=== PATIENT | female | born 1965 | race American Indian/Alaskan Native ===

== ENCOUNTER 2020-05-22 09:39 | Emergency (ER) | payer BC, MEDICAID ==
[2020-05-22 09:50] VITALS: BP 114/68; PULSE 84
--- NOTE | 2020-05-22 10:08 | EDM.PDOC ---
ED HPI GENERAL MEDICAL PROBLEM - General Chief Complaint: Upper Extremity Injury/Pain Stated Complaint: FALL/L WRIST PAIN Time Seen by Provider: 05/22/20 09:54 Source of Information: Reports: Patient History Limitations: Reports: No Limitations - History of Present Illness INITIAL COMMENTS - FREE TEXT/NARRATIVE: The patient presents with left wrist pain. She was wrapping presents and she had a mess and she tripped and fell backward and landed on her left wrist. She has some pain to her left wrist with some edema. She did not hit her head or hurt her neck. She has no other injuries. She is right handed. Onset: Sudden Duration: Day(s): (last night) Location: Reports: Upper Extremity, Left (wrist) Quality: Reports: Sharp Severity: Moderate Improves with: Reports: Immobilization Worsens with: Reports: Movement Context: Reports: Trauma (fell) Associated Symptoms: Reports: No Other Symptoms Left Wrist Pain Score (Numeric/FACES): 10 - Related Data Allergies Allergy/AdvReac Type Severity Reaction Status Date / Time No Known Allergies Allergy Verified 05/22/20 09:50 Home Meds: Home Meds Doxycycline [Vibramycin] 100 mg PO Q12HR #24 cap 09/17/15 [Rx] traMADol [Ultram] 50 mg PO QID 09/17/15 [History] traMADol [Ultram] 100 mg PO Q6H #20 tablet 09/17/15 [Rx] Past Medical History Other HEENT History: Parotitis Cardiovascular History: Reports: High Cholesterol, Hypertension Genitourinary History: Reports: Other (See Below) Other Genitourinary History: bladder sling placement 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 (See Below) Other FOOD PORTER History: hysterectomy Musculoskeletal History: Reports: Arthritis Psychiatric History: Reports: Anxiety, Depression Oncologic (Cancer) History: Reports: Leukemia - Past Surgical History HEENT Surgical History: Reports: Myringotomy w Tube(s), Oral Surgery, Other (See Below) Other HEENT Surgeries/Procedures: wisdom teeth extraction Social & Family History - Family History Family Medical History: No Pertinent Family History - Tobacco Use Tobacco Use Status *Q: Current Every Day Tobacco User Years of Tobacco use: 35 Packs/Tins Daily: 0.5 - Caffeine Use Caffeine Use: Reports: None - Recreational Drug Use Recreational Drug Use: No - Living Situation & Occupation Occupation: Employed Review of Systems - Review of Systems Review Of Systems: See Below Constitutional: Reports: No Symptoms Eyes: Reports: No Symptoms Ears: Reports: No Symptoms Nose: Reports: No Symptoms Mouth/Throat: Reports: No Symptoms Respiratory: Reports: No Symptoms Cardiovascular: Reports: No Symptoms GI/Abdominal: Reports: No Symptoms Musculoskeletal: Reports: Other (Left wrist pain and swelling) ED EXAM, GENERAL - Physical Exam Exam: See Below Exam Limited By: No Limitations General Appearance: Alert, No Apparent Distress Ears: Normal External Exam Nose: Normal Inspection Head: Atraumatic, Normocephalic Neck: Normal Inspection Respiratory/Chest: No Respiratory Distress Extremities: Other (Pain upon palpation to the left wrist with edema. Good sensation and capillary refill distally.) Course - Vital Signs Last Recorded V/S: Last Vital Signs Temp 97.7 F 05/22/20 09:47 Pulse 84 05/22/20 09:47 Resp 16 05/22/20 09:47 BP 114/68 05/22/20 09:47 Pulse Ox 97 05/22/20 09:47 - Orders/Labs/Meds Orders: Active Orders 24 hr Category Date Time Status Wrist Comp Min 3V Lt [CR] Stat Exams 05/22/20 09:56 Taken Durable Medical Equipment for Discharge [DME for Oth 05/22/20 10:23 Ordered Discharge] [COMM] Stat - Re-Assessments/Exams Free Text/Narrative Re-Assessment/Exam: 05/22/20 10:08 I ordered an x-ray of her left wrist. 05/22/20 10:23 There is no wrist fracture. I will get her a wrist splint and something for pain. Departure - Departure Time of Disposition: 10:30 Disposition: Home, Self-Care 01 Condition: Good Clinical Impression: Fall Qualifiers: Encounter type: initial encounter Qualified Code(s): W19.XXXA - Unspecified fall, initial encounter Left wrist sprain Qualifiers: Encounter type: initial encounter Qualified Code(s): S63.502A - Unspecified sprain of left wrist, initial encounter - Discharge Information *PRESCRIPTION DRUG MONITORING PROGRAM REVIEWED*: Not Applicable *COPY OF PRESCRIPTION DRUG MONITORING REPORT IN PATIENT AMOS: Not Applicable Referrals: Poonam Reyna NP [Primary Care Provider] - 1 Week Forms: ED Department Discharge Additional Instructions: Ice your wrist for 15 minutes 3 times per day for 2 days. Take tylenol or motrin for pain. If that does not help, try the hydrocodone. Wear the splint for comfort. If you are not better within a week, follow up with your doctor for a repeat x-ray. Sepsis Event Note (ED) - Evaluation Sepsis Screening Result: No Definite Risk - Focused Exam Vital Signs: Vital Signs Temp Pulse Resp BP Pulse Ox 05/22/20 09:47 97.7 F 84 16 114/68 97 - My Orders Last 24 Hours: My Active Orders 05/22/20 09:56 Wrist Comp Min 3V Lt [CR] Stat 05/22/20 10:23 Durable Medical Equipment for Discharge [DME for Discharge] [COMM] Stat - Assessment/Plan Last 24 Hours: My Active Orders 05/22/20 09:56 Wrist Comp Min 3V Lt [CR] Stat 05/22/20 10:23 Durable Medical Equipment for Discharge [DME for Discharge] [COMM] Stat
--- NOTE | 2020-05-23 09:58 | CR ---
PROCEDURE INFORMATION: Exam: XR Left Wrist Exam date and time: 05/22/2020 9:43 AM Age: 54 years old Clinical indication: Injury or trauma; Swelling (edema); Wrist; Left; Injury details: Fall, wetn to catch herself TECHNIQUE: Imaging protocol: XR Left wrist. Views: 3 or more views. COMPARISON: No relevant prior studies available. FINDINGS: Bones/joints: No acute fracture or dislocation is identified. The radiocarpal compartment is mildly narrowed. Very mild osteophyte formation is present about the 1st carpometacarpal joint. There is no osseous erosion or cortical destruction. Soft tissues: There is mild generalized soft tissue swelling. IMPRESSION: 1. Mild soft tissue swelling without acute fracture or dislocation identified. May consider follow-up in 7 to 10 days or correlation with MRI if symptoms persist. 2. Degenerative changes as described. Thank you for allowing us to participate in the care of your patient. Dictated and Authenticated by: Malachi Stephenson MD 05/22/2020 1:49 PM Central Time ([place] & [place]) [place]
== END 2020-05-22 10:39 | disposition home or self-care (01) ==
LOC: JD.ED 09:39
DX: S63.502A Unspecified sprain of left wrist, initial encounter (principal); I10 Essential (primary) hypertension; F17.210 Nicotine dependence, cigarettes, uncomplicated; W01.0XXA Fall on same level from slipping, tripping and stumbling without subsequent striking against object, initial encounter
CPT/HCPCS: 73110-26-LT; 73110-LT; 99283-25

== ENCOUNTER 2020-05-27 07:36 | Inpatient (IN) | payer BC, MEDICAID ==
[2020-05-27] MEDS ORDERED: HYDROmorphone 0.5 MG/0.5 ML Syringe IVPUSH ONE ×2 (08:25→12:24)
[2020-05-27] MEDS ORDERED: Sodium Chloride 0.9% 10 ML Syringe FLUSH PRN ×2 (08:25→13:01)
[2020-05-27] MEDS: Sodium Chloride 0.9% 1,000 ML IV SCH ×3 (08:55→19:30)
[2020-05-27] MEDS ORDERED: Clindamycin Phosphate in D5W 900 MG in Premix Bag 1 BAG IV ONE ×2 (09:10)
[2020-05-27] MEDS ORDERED: Sodium Chloride 0.9% 10 ML Syringe FLUSH ONE (10:19)
[2020-05-27] MEDS ORDERED: Iopamidol 612 MG/ML 100 ML Bottle IVPUSH ONE (10:19)
[2020-05-27] MEDS ORDERED: cefTRIAXone 2 GM in Sodium Chloride 0.9% 100 ML IV ONE (11:06)
--- NOTE | 2020-05-27 11:17 | EDM.PDOC ---
ED HPI GENERAL MEDICAL PROBLEM - General Chief Complaint: ENT Problem Stated Complaint: FACIAL SWELLING Time Seen by Provider: 05/27/20 08:10 Source of Information: Reports: Patient, RN Notes Reviewed - History of Present Illness INITIAL COMMENTS - FREE TEXT/NARRATIVE: 54 yr old female comes in with R facial pain and swelling. Started about 3 days ago. Low grade fever, chills. Hx of something similar about 8 to 10 yrs ago. No recent cough, chest pain or difficulty breathing. No sore throat. She is not diabetic. Right Face/Facial Pain Score (Numeric/FACES): 1 - Related Data Allergies Allergy/AdvReac Type Severity Reaction Status Date / Time No Known Allergies Allergy Verified 05/27/20 08:05 Home Meds: Home Meds Amoxicillin/Potassium Clav [Augmentin 875-125 Tablet] 125 - 875 mg PO BID 05/27/20 [History] Citalopram Hydrobromide [Celexa] 40 mg PO DAILY 05/27/20 [History] Zolpidem [Ambien] 10 mg PO BEDTIME PRN 05/27/20 [History] oxyCODONE HCl/Acetaminophen [Oxycodone-Acetaminophen 5-325] 5 - 325 mg PO Q6H PRN 05/27/20 [History] traMADol [Ultram] 100 mg PO Q6H PRN 05/27/20 [History] Past Medical History Other HEENT History: Parotitis Cardiovascular History: Reports: High Cholesterol, Hypertension Genitourinary History: Reports: Other (See Below) Other Genitourinary History: bladder sling placement [employer] 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 Psychiatric History: Reports: Anxiety, Depression Hematologic History: Reports: Anemia Oncologic (Cancer) History: Reports: Leukemia, Other (See Below) Other Oncologic History: states was told had "bone disease." - Infectious Disease History Infectious Disease History: Reports: Chicken Pox - Past Surgical History HEENT Surgical History: Reports: Myringotomy w Tube(s), Oral Surgery, Other (See Below) Other HEENT Surgeries/Procedures: wisdom teeth extraction GI Surgical History: Reports: Cholecystectomy Female Surgical History: Reports: Hysterectomy Social & Family History - Family History Family Medical History: No Pertinent Family History - Tobacco Use Tobacco Use Status *Q: Current Every Day Tobacco User Years of Tobacco use: 30 Packs/Tins Daily: 0.5 - Caffeine Use Caffeine Use: Reports: Coffee - Recreational Drug Use Recreational Drug Use: No - Living Situation & Occupation Occupation: Employed ED ROS ENT - Review of Systems Review Of Systems: See Below Constitutional: Reports: Fever, Chills HEENT: Reports: Other (R facial pain and swelling). Denies: Throat Pain Respiratory: Denies: Cough Cardiovascular: Denies: Chest Pain GI/Abdominal: Denies: Abdominal Pain, Nausea, Vomiting Musculoskeletal: Reports: Neck Pain (and swelling R upper neck) Skin: Reports: Erythema (mild base of R ear and ant. to R ear) Neurological: Denies: Headache, Numbness, Tingling, Trouble Speaking, Difficulty Walking, Weakness ED EXAM, ENT - Physical Exam Exam: See Below General Appearance: Alert, Moderate Distress Eye Exam: Bilateral Eye: PERRL Mouth/Throat: Normal Inspection Head: Facial Swelling (moderate R facial swelling and tenderness, R maxillary to R base of ear) Neck: Other (mooderate diffuse swelling and tenderness R upper neck) Respiratory/Chest: No Respiratory Distress, Lungs Clear, Normal Breath Sounds. No: Rhonchi, Wheezing Cardiovascular: Regular Rate, Rhythm Extremities: Normal Inspection, Normal Range of Motion Neurological: Alert, Oriented, No Motor/Sensory Deficits Skin: Warm, Dry Course - Vital Signs Last Recorded V/S: Last Vital Signs Temp 100.0 F 05/27/20 08:00 Pulse 72 05/27/20 08:00 Resp 16 05/27/20 08:00 BP 134/68 05/27/20 08:00 Pulse Ox 93 L 05/27/20 08:00 - Orders/Labs/Meds Orders: Active Orders 24 hr Category Date Time Status Peripheral IV Care [RC] . DIRECTED Care 05/27/20 08:26 Active Max Facial Sinus w Cont [CT] Stat Exams 05/27/20 08:27 Taken CULTURE BLOOD [BC] Stat Lab 05/27/20 08:45 Received Sodium Chloride 0.9% [Normal Saline] 1,000 ml Med 05/27/20 08:30 Active IV ASDIRECTED Sodium Chloride 0.9% [Saline Flush] Med 05/27/20 08:25 Active 10 ml FLUSH ASDIRECTED PRN Peripheral IV Insertion Adult [OM.PC] Stat Oth 05/27/20 08:25 Ordered Medication Orders Sodium Chloride (Normal Saline) 1,000 mls @ 150 mls/hr IV ASDIRECTED LOUISE Last Admin: 05/27/20 08:55 Dose: 150 mls/hr Documented by: PINO Sodium Chloride (Saline Flush) 10 ml FLUSH ASDIRECTED PRN PRN Reason: Keep Vein Open Last Admin: 05/27/20 08:55 Dose: 10 ml Documented by: PINO Labs: Laboratory Tests 05/27/20 05/27/20 05/27/20 Range/Units 08:45 08:45 08:45 WBC 17.87 H (3.98-10.04) K/mm3 RBC 4.16 (3.98-5.22) M/mm3 Hgb 12.4 (11.2-15.7) gm/dl Hct 36.7 (34.1-44.9) % MCV 88.2 (79.4-94.8) fl MCH 29.8 (25.6-32.2) pg MCHC 33.8 (32.2-35.5) g/dl RDW Std Deviation 43.9 (36.4-46.3) fL Plt Count 353 (182-369) K/mm3 MPV 9.7 (9.4-12.3) fl Neut % (Auto) 81.8 H (34.0-71.1) % Lymph % (Auto) 10.8 L (19.3-51.7) % Smyth % (Auto) 6.4 (4.7-12.5) % Eos % (Auto) 0.9 (0.7-5.8) Baso % (Auto) 0.1 (0.1-1.2) % Neut # (Auto) 14.61 H (1.56-6.13) K/mm3 Lymph # (Auto) 1.93 (1.18-3.74) K/mm3 Smyth # (Auto) 1.15 H (0.24-0.36) K/mm3 Eos # (Auto) 0.16 (0.04-0.36) K/mm3 Baso # (Auto) 0.02 (0.01-0.08) K/mm3 Sodium 137 (136-145) mEq/L Potassium 3.7 (3.5-5.1) mEq/L Chloride 101 (98-107) mEq/L Carbon Dioxide 26 (21-32) mEq/L Anion Gap 13.7 (5-15) BUN 9 (7-18) mg/dL Creatinine 0.8 (0.55-1.02) mg/dL Est Cr Clr Drug Dosing 84.01 mL/min Estimated GFR (MDRD) > 60 (>60) mL/min BUN/Creatinine Ratio 11.3 L (14-18) Glucose 112 H (74-106) mg/dL Calcium 9.1 (8.5-10.1) mg/dL Total Bilirubin 0.4 (0.2-1.0) mg/dL AST 11 L (15-37) U/L ALT 23 (14-59) U/L Alkaline Phosphatase 74 (46-116) U/L C-Reactive Protein 15.6 H* (<1.0) mg/dL Total Protein 7.8 (6.4-8.2) g/dl Albumin 3.3 L (3.4-5.0) g/dl Globulin 4.5 gm/dL Albumin/Globulin Ratio 0.7 L (1-2) SARS-CoV-2 RNA (GEMINI) (NEGATIVE) 05/27/20 Range/Units 09:45 WBC (3.98-10.04) K/mm3 RBC (3.98-5.22) M/mm3 Hgb (11.2-15.7) gm/dl Hct (34.1-44.9) % MCV (79.4-94.8) fl MCH (25.6-32.2) pg MCHC (32.2-35.5) g/dl RDW Std Deviation (36.4-46.3) fL Plt Count (182-369) K/mm3 MPV (9.4-12.3) fl Neut % (Auto) (34.0-71.1) % Lymph % (Auto) (19.3-51.7) % Smyth % (Auto) (4.7-12.5) % Eos % (Auto) (0.7-5.8) Baso % (Auto) (0.1-1.2) % Neut # (Auto) (1.56-6.13) K/mm3 Lymph # (Auto) (1.18-3.74) K/mm3 Smyth # (Auto) (0.24-0.36) K/mm3 Eos # (Auto) (0.04-0.36) K/mm3 Baso # (Auto) (0.01-0.08) K/mm3 Sodium (136-145) mEq/L Potassium (3.5-5.1) mEq/L Chloride (98-107) mEq/L Carbon Dioxide (21-32) mEq/L Anion Gap (5-15) BUN (7-18) mg/dL Creatinine (0.55-1.02) mg/dL Est Cr Clr Drug Dosing mL/min Estimated GFR (MDRD) (>60) mL/min BUN/Creatinine Ratio (14-18) Glucose (74-106) mg/dL Calcium (8.5-10.1) mg/dL Total Bilirubin (0.2-1.0) mg/dL AST (15-37) U/L ALT (14-59) U/L Alkaline Phosphatase (46-116) U/L C-Reactive Protein (<1.0) mg/dL Total Protein (6.4-8.2) g/dl Albumin (3.4-5.0) g/dl Globulin gm/dL Albumin/Globulin Ratio (1-2) SARS-CoV-2 RNA (GEMINI) Negative (NEGATIVE) Meds: Medications Generic Name Dose Route Start Last Admin Trade Name Freq PRN Reason Stop Dose Admin Sodium Chloride 1,000 mls @ 150 mls/hr 05/27/20 08:30 05/27/20 08:55 Normal Saline IV 150 mls/hr ASDIRECTED LOUISE Administration Sodium Chloride 10 ml 05/27/20 08:25 05/27/20 08:55 Saline Flush FLUSH 10 ml ASDIRECTED PRN Administration Keep Vein Open Discontinued Medications Generic Name Dose Route Start Last Admin Trade Name Freq PRN Reason Stop Dose Admin Hydromorphone HCl 0.5 mg 05/27/20 08:25 05/27/20 08:50 Dilaudid IVPUSH 05/27/20 08:26 0.5 mg ONETIME ONE Administration Hydromorphone HCl 0.5 mg 05/27/20 12:24 Dilaudid IVPUSH 05/27/20 12:25 ONETIME ONE Clindamycin Phosphate 900 mg/ 50 mls @ 100 mls/hr 05/27/20 09:10 05/27/20 09:42 Premix IV 05/27/20 09:39 100 mls/hr ONETIME ONE Administration Ceftriaxone Sodium 2 gm/ 100 mls @ 200 mls/hr 05/27/20 11:06 05/27/20 12:20 Sodium Chloride IV 05/27/20 11:35 200 mls/hr ONETIME ONE Administration Iopamidol 100 ml 05/27/20 10:19 05/27/20 10:24 Isovue-300 (61%) IVPUSH 05/27/20 10:20 100 ml ONETIME ONE Administration Sodium Chloride 10 ml 05/27/20 10:19 05/27/20 10:24 Saline Flush FLUSH 05/27/20 10:20 10 ml ONETIME ONE Administration - Re-Assessments/Exams Free Text/Narrative Re-Assessment/Exam: 05/27/20 11:17. WBC 17,800. 82 % seg, 11 % L, CRP 15.6. CT of R face and R neck shows wide spread edema and inflamatory change R face and neck with large mass, probable parotid measuring 3 by 5 cm, no abcess, see Radiology report for details. CT also shows lymph nodes R neck. Have discussed with CLIVE Bowens, [facility] who states treatment for this is Hospitalization, IV abx, agrees with IV Cipro 900 TID, wants rocephin added. Have ordered initial dose of Rocephin 2 grams IV as well. We will have one more bed available this afternoon. Her Covid is neg. Will arrange for admission. Departure - Departure Time of Disposition: 12:30 Disposition: Home, Self-Care 01 Condition: Serious Clinical Impression: Facial infection, Parotitis, acute - Discharge Information Referrals: Poonam Reyna NP [Primary Care Provider] - Forms: ED Department Discharge Sepsis Event Note (ED) - Evaluation Sepsis Screening Result: No Definite Risk - Focused Exam Vital Signs: Vital Signs Temp Pulse Resp BP Pulse Ox 05/27/20 08:00 100.0 F 72 16 134/68 93 L ED Communication - Discussed Case With (1) Discussed Case With (1): Admitting Provider (Dr Murray, decision to admit at about 12:30.) - My Orders Last 24 Hours: My Active Orders 05/27/20 08:25 Sodium Chloride 0.9% [Saline Flush] 10 ml FLUSH ASDIRECTED PRN Peripheral IV Insertion Adult [OM.PC] Stat 05/27/20 08:26 Peripheral IV Care [RC] . DIRECTED 05/27/20 08:27 Max Facial Sinus w Cont [CT] Stat 05/27/20 08:30 Sodium Chloride 0.9% [Normal Saline] 1,000 ml IV ASDIRECTED 05/27/20 08:45 CULTURE BLOOD [BC] Stat - Assessment/Plan Last 24 Hours: My Active Orders 05/27/20 08:25 Sodium Chloride 0.9% [Saline Flush] 10 ml FLUSH ASDIRECTED PRN Peripheral IV Insertion Adult [OM.PC] Stat 05/27/20 08:26 Peripheral IV Care [RC] . DIRECTED 05/27/20 08:27 Max Facial Sinus w Cont [CT] Stat 05/27/20 08:30 Sodium Chloride 0.9% [Normal Saline] 1,000 ml IV ASDIRECTED 05/27/20 08:45 CULTURE BLOOD [BC] Stat
[2020-05-27] MEDS ORDERED: Magnesium Hydroxide 400 MG/5 ML Susp 30 ML Cup PO PRN (13:01)
[2020-05-27] MEDS ORDERED: Ondansetron 4 MG/2 ML SDV IV PRN (13:01)
[2020-05-27] MEDS ORDERED: Clindamycin Phosphate in D5W 900 MG in Premix Bag 1 BAG IV SCH ×4 (13:15→16:30)
--- NOTE | 2020-05-27 13:46 | PCM.HP.2 ---
H&P History of Present Illness - General Date of Service: 05/27/20 Admit Problem/Dx: Admission Diagnosis/Problem Admission Diagnosis/Problem Infection of parotid gland Source of Information: Patient, Provider History Limitations: Reports: No Limitations - History of Present Illness Initial Comments - Free Text/Narative: 54 yr old female comes in with R facial pain and swelling. Started about 3 days ago. Low grade fever, chills. Hx of something similar about 8 to 10 yrs ago. No recent cough, chest pain or difficulty breathing. No sore throat. She is not diabetic. States she was seen by her primary care physician 2 days ago at the clinic and was prescribed steroids at that time. Swelling has progressively gotten worse and she has developed trismus. States she has only been drinking water and eating some yogurt. Onset of Symptoms: Reports: Gradual Right Face/Facial Pain Score (Numeric/FACES): 1 - Related Data Allergies/Adverse Reactions: Allergies Allergy/AdvReac Type Severity Reaction Status Date / Time No Known Allergies Allergy Verified 05/27/20 08:05 Home Medications: Home Meds Amoxicillin/Potassium Clav [Augmentin 875-125 Tablet] 125 - 875 mg PO BID 05/27/20 [History] Citalopram Hydrobromide [Celexa] 40 mg PO DAILY 05/27/20 [History] Zolpidem [Ambien] 10 mg PO BEDTIME PRN 05/27/20 [History] atorvaSTATin [Lipitor] 40 mg PO DAILY 05/27/20 [History] buPROPion [buPROPion XL] 150 mg PO DAILY 05/27/20 [History] hydroCHLOROthiazide [Hydrochlorothiazide] 12.5 mg PO DAILY 05/27/20 [History] lisinopriL [Lisinopril] 40 mg PO DAILY 05/27/20 [History] oxyCODONE HCl/Acetaminophen [Oxycodone-Acetaminophen 5-325] 5 - 325 mg PO Q6H PRN 05/27/20 [History] traMADol [Ultram] 100 mg PO Q6H PRN 05/27/20 [History] Past Medical History Other HEENT History: Parotitis Cardiovascular History: Reports: High Cholesterol, Hypertension Genitourinary History: Reports: Other (See Below) Other Genitourinary History: bladder sling placement 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 Psychiatric History: Reports: Anxiety, Depression Hematologic History: Reports: Anemia Oncologic (Cancer) History: Reports: Leukemia, Other (See Below) Other Oncologic History: states was told had "bone disease." - Infectious Disease History Infectious Disease History: Reports: Chicken Pox - Past Surgical History HEENT Surgical History: Reports: Myringotomy w Tube(s), Oral Surgery, Other (See Below) Other HEENT Surgeries/Procedures: wisdom teeth extraction GI Surgical History: Reports: Cholecystectomy Female Surgical History: Reports: Hysterectomy Social & Family History - Family History Family Medical History: No Pertinent Family History - Tobacco Use Tobacco Use Status *Q: Current Every Day Tobacco User Years of Tobacco use: 30 Packs/Tins Daily: 0.5 - Caffeine Use Caffeine Use: Reports: Coffee - Recreational Drug Use Recreational Drug Use: No - Living Situation & Occupation Occupation: Employed H&P Review of Systems - Review of Systems: Review Of Systems: See Below General: Reports: Fever, Chills, Malaise, Fatigue, Decreased Appetite HEENT: Reports: Other (Trismus) Pulmonary: Reports: No Symptoms Cardiovascular: Reports: No Symptoms Gastrointestinal: Reports: No Symptoms Genitourinary: Reports: No Symptoms Musculoskeletal: Reports: No Symptoms Skin: Reports: No Symptoms Psychiatric: Reports: No Symptoms Neurological: Reports: No Symptoms Hematologic/Lymphatic: Reports: No Symptoms Immunologic: Reports: No Symptoms Exam - Exam Exam: See Below - Vital Signs Vital Signs: Last Vital Signs Temp 100.0 F 05/27/20 08:00 Pulse 72 05/27/20 08:00 Resp 16 05/27/20 08:00 BP 134/68 05/27/20 08:00 Pulse Ox 93 L 05/27/20 08:00 Weight: 220 lb - Exam Quality Assessment: DVT Prophylaxis (Lovenox). No: Supplemental Oxygen General: Alert, Oriented, Cooperative, Mild Distress HEENT: Conjunctiva Clear, EACs Clear, EOMI, Hearing Intact, Posterior Pharynx Clear, Pupils Equal, Pupils Reactive, Other (Right facial swelling noted from jawline into right eye). No: Mucosa Moist & [place] (Dry) Neck: Supple, Trachea Midline, Lymphadenopathy (Right cervical, right preauricular) Lungs: Normal Respiratory Effort, Wheezing Cardiovascular: Regular Rate, Regular Rhythm, Normal S1, Normal S2 GI/Abdominal Exam: Normal Bowel Sounds, Soft, Non-Tender, No Distention (Female) Exam: Deferred Rectal (Female) Exam: Deferred Back Exam: Normal Inspection, Full Range of Motion Extremities: Normal Inspection, Normal Range of Motion, Non-Tender, No Pedal Edema, Normal Capillary Refill, Other (Left forearm is bracedpatient states that she fell earlier this week and fractured her arm) Peripheral Pulses: 2+: Radial (R), Dorsalis Pedis (L), Dorsalis Pedis (R) Skin: Warm, Dry, Intact Neuro Extensive - Mental Status: Alert, Oriented x3, Normal Mood/Affect, Normal Cognition, Memory Intact Psychiatric: Alert, Normal Affect, Normal Mood - Patient Data Lab Results Last 24 hrs: Laboratory Results - last 24 hr 05/27/20 05/27/20 05/27/20 Range/Units 08:45 08:45 08:45 WBC 17.87 H (3.98-10.04) K/mm3 RBC 4.16 (3.98-5.22) M/mm3 Hgb 12.4 (11.2-15.7) gm/dl Hct 36.7 (34.1-44.9) % MCV 88.2 (79.4-94.8) fl MCH 29.8 (25.6-32.2) pg MCHC 33.8 (32.2-35.5) g/dl RDW Std Deviation 43.9 (36.4-46.3) fL Plt Count 353 (182-369) K/mm3 MPV 9.7 (9.4-12.3) fl Neut % (Auto) 81.8 H (34.0-71.1) % Lymph % (Auto) 10.8 L (19.3-51.7) % [place] % (Auto) 6.4 (4.7-12.5) % Eos % (Auto) 0.9 (0.7-5.8) Baso % (Auto) 0.1 (0.1-1.2) % Neut # (Auto) 14.61 H (1.56-6.13) K/mm3 Lymph # (Auto) 1.93 (1.18-3.74) K/mm3 [place] # (Auto) 1.15 H (0.24-0.36) K/mm3 Eos # (Auto) 0.16 (0.04-0.36) K/mm3 Baso # (Auto) 0.02 (0.01-0.08) K/mm3 Sodium 137 (136-145) mEq/L Potassium 3.7 (3.5-5.1) mEq/L Chloride 101 (98-107) mEq/L Carbon Dioxide 26 (21-32) mEq/L Anion Gap 13.7 (5-15) BUN 9 (7-18) mg/dL Creatinine 0.8 (0.55-1.02) mg/dL Est Cr Clr Drug Dosing 84.01 mL/min Estimated GFR (MDRD) > 60 (>60) mL/min BUN/Creatinine Ratio 11.3 L (14-18) Glucose 112 H (74-106) mg/dL Calcium 9.1 (8.5-10.1) mg/dL Total Bilirubin 0.4 (0.2-1.0) mg/dL AST 11 L (15-37) U/L ALT 23 (14-59) U/L Alkaline Phosphatase 74 (46-116) U/L C-Reactive Protein 15.6 H* (<1.0) mg/dL Total Protein 7.8 (6.4-8.2) g/dl Albumin 3.3 L (3.4-5.0) g/dl Globulin 4.5 gm/dL Albumin/Globulin Ratio 0.7 L (1-2) SARS-CoV-2 RNA (GEMINI) (NEGATIVE) 05/27/20 Range/Units 09:45 WBC (3.98-10.04) K/mm3 RBC (3.98-5.22) M/mm3 Hgb (11.2-15.7) gm/dl Hct (34.1-44.9) % MCV (79.4-94.8) fl MCH (25.6-32.2) pg MCHC (32.2-35.5) g/dl RDW Std Deviation (36.4-46.3) fL Plt Count (182-369) K/mm3 MPV (9.4-12.3) fl Neut % (Auto) (34.0-71.1) % Lymph % (Auto) (19.3-51.7) % [place] % (Auto) (4.7-12.5) % Eos % (Auto) (0.7-5.8) Baso % (Auto) (0.1-1.2) % Neut # (Auto) (1.56-6.13) K/mm3 Lymph # (Auto) (1.18-3.74) K/mm3 [place] # (Auto) (0.24-0.36) K/mm3 Eos # (Auto) (0.04-0.36) K/mm3 Baso # (Auto) (0.01-0.08) K/mm3 Sodium (136-145) mEq/L Potassium (3.5-5.1) mEq/L Chloride (98-107) mEq/L Carbon Dioxide (21-32) mEq/L Anion Gap (5-15) BUN (7-18) mg/dL Creatinine (0.55-1.02) mg/dL Est Cr Clr Drug Dosing mL/min Estimated GFR (MDRD) (>60) mL/min BUN/Creatinine Ratio (14-18) Glucose (74-106) mg/dL Calcium (8.5-10.1) mg/dL Total Bilirubin (0.2-1.0) mg/dL AST (15-37) U/L ALT (14-59) U/L Alkaline Phosphatase (46-116) U/L C-Reactive Protein (<1.0) mg/dL Total Protein (6.4-8.2) g/dl Albumin (3.4-5.0) g/dl Globulin gm/dL Albumin/Globulin Ratio (1-2) SARS-CoV-2 RNA (GEMINI) Negative (NEGATIVE) Result Diagrams: 05/27/20 08:45 05/27/20 08:45 Sepsis Event Note - Evaluation Sepsis Screening Result: No Definite Risk - Focused Exam Vital Signs: Vital Signs Temp Pulse Resp BP Pulse Ox 05/27/20 08:00 100.0 F 72 16 134/68 93 L - Problem List (1) Acute parotitis SNOMED Code(s): 30752023, [id number] ICD Code: K11.21 - ACUTE SIALOADENITIS Status: Acute Priority: High Current Visit: Yes Problem List Initiated/Reviewed/Updated: Yes Orders Last 24hrs: Active Orders 24 hr Category Date Time Status Patient Status [ADT] Routine ADT 05/27/20 13:01 Active Ambulate [RC] ASDIRECTED Care 05/27/20 13:01 Active Intake and Output [RC] QSHIFT Care 05/27/20 13:03 Active Oxygen Therapy [RC] PRN Care 05/27/20 13:01 Active Peripheral IV Care [RC] . DIRECTED Care 05/27/20 08:26 Active VTE/DVT Education [RC] PER UNIT ROUTINE Care 05/27/20 13:01 Active Vital Signs [RC] Q4H Care 05/27/20 13:01 Active Consult to Case Management/[place] [CONS] Cons 05/27/20 13:01 Active Routine Regular Diet [DIET] Diet 05/27/20 Dinner Active Max Facial Sinus w Cont [CT] Stat Exams 05/27/20 08:27 Taken BASIC METABOLIC PANEL,BMP [CHEM] AM Lab 05/28/20 05:11 Ordered CBC WITH AUTO DIFF [HEME] AM Lab 05/28/20 05:11 Ordered CULTURE BLOOD [BC] Stat Lab 05/27/20 08:45 Received MAGNESIUM [CHEM] AM Lab 05/28/20 05:11 Ordered Acetaminophen [TylenoL] Med 05/27/20 13:01 Active 650 mg PO Q4H PRN Clindamycin Phosphate in D5W [Cleocin in D5W] 900 mg Med 05/27/20 13:15 Active Premix Bag 1 bag IV Q8H HYDROmorphone [Dilaudid] Med 05/27/20 13:01 Active 0.5 mg IVPUSH Q2H PRN Magnesium Hydroxide [Milk of Magnesia] Med 05/27/20 13:01 Active 30 ml PO Q12H PRN Ondansetron [Zofran] Med 05/27/20 13:01 Active 4 mg IV Q4H PRN Sodium Chloride 0.9% [Normal Saline] 1,000 ml Med 05/27/20 08:30 Active IV ASDIRECTED Sodium Chloride 0.9% [Saline Flush] Med 05/27/20 08:25 Active 10 ml FLUSH ASDIRECTED PRN Sodium Chloride 0.9% [Saline Flush] Med 05/27/20 13:01 Active 10 ml FLUSH ASDIRECTED PRN cefTRIAXone [Rocephin] 2 gm Med 05/28/20 13:15 Active Sodium Chloride 0.9% [Normal Saline] 100 ml IV Q24H Peripheral IV Insertion Adult [OM.PC] Stat Oth 05/27/20 08:25 Ordered Saline Lock Insert [OM.PC] Routine Oth 05/27/20 13:01 Ordered Resuscitation Status Routine Resus Stat 05/27/20 13:01 Ordered Medication Orders Acetaminophen (Tylenol) 650 mg PO Q4H PRN PRN Reason: Pain (Mild 1-3)/fever Hydromorphone HCl (Dilaudid) 0.5 mg IVPUSH Q2H PRN PRN Reason: Pain (severe 7-10) Sodium Chloride (Normal Saline) 1,000 mls @ 150 mls/hr IV ASDIRECTED [facility] Last Admin: 05/27/20 08:55 Dose: 150 mls/hr Documented by: PINO Ceftriaxone Sodium 2 gm/ (Sodium Chloride) 100 mls @ 200 mls/hr IV Q24H LOUISE Clindamycin Phosphate 900 mg/ (Premix) 50 mls @ 100 mls/hr IV Q8H LOUISE Magnesium Hydroxide (Milk Of Magnesia) 30 ml PO Q12H PRN PRN Reason: Constipation Ondansetron HCl (Zofran) 4 mg IV Q4H PRN PRN Reason: Nausea/Vomiting Sodium Chloride (Saline Flush) 10 ml FLUSH ASDIRECTED PRN PRN Reason: Keep Vein Open Last Admin: 05/27/20 08:55 Dose: 10 ml Documented by: PINO Sodium Chloride (Saline Flush) 10 ml FLUSH ASDIRECTED PRN PRN Reason: Keep Vein Open Assessment/Plan Comment:: 05/27/20 * 54-year-old female with gradual onset of right facial pain and swelling that started about 3 days ago. * Patient was seen at the clinic 2 days ago and was started on steroids and pain medication. * History of parotiditis about 10 years ago. * Admits to smoking 1/2 pack a day for the past 30 years * Vitals in the ED reveal a temp of 100.0 Fahrenheit, pulse 72, respiratory rate 16, blood pressure 134/68, pulse ox 93% on room air. * Labs in the ED reveal WBC 17.87 platelet count 353, neutrophil percentage auto 81.8, C-reactive protein 15.6, patient is Covid negative, blood cultures were obtained * Per Dr. Zamora, CT of right face and right neck shows widespread edema and inflammatory change right face and neck with large mass, probable parotid measuring 3 x 5 cm, no abscess, see radiology report for details. CT also shows lymph nodes right neck. * Dr. Cross, ENT, [facility] As recommends Clindamycin 900mg IV q 8 hours and Rocephin 2gm IV q 24 hours. PLAN: * Admit to the M/S/P floor as an impatient. * VS q 4 h * strict I&O * Clindamycin 900mg IV q 8 hours * Rocephin 2gm IV q 24 hours * Lovenox for DVT prophylaxis * Nicotine patch q 24 hours * pain management * repeat labs in the am * soft diet * Pt is a full code. - Mortality Measure Prognosis:: Good
[2020-05-27] MEDS: HYDROmorphone 0.5 MG/0.5 ML Syringe IVPUSH PRN ×3 (16:06→22:00)
[2020-05-27] MEDS: Enoxaparin 30 MG/0.3 ML Syringe SUBCUT SCH (16:08)
[2020-05-27] MEDS: Acetaminophen 325 MG Tab PO PRN ×2 (16:11→23:53)
[2020-05-27] MEDS: Clindamycin Phosphate in D5W 900 MG in Premix Bag 1 BAG IV SCH ×2 (18:29)
[2020-05-27] MEDS: oxyCODONE 5 MG Tab PO PRN (23:53)
[2020-05-28] MEDS: Clindamycin Phosphate in D5W 900 MG in Premix Bag 1 BAG IV SCH ×6 (02:07→18:02)
[2020-05-28] MEDS ORDERED: oxyCODONE 5 MG Tab PO ONE (02:15)
[2020-05-28] MEDS: oxyCODONE 5 MG Tab PO PRN ×5 (04:30→18:46)
[2020-05-28] MEDS: Acetaminophen 325 MG Tab PO PRN ×2 (04:33→21:33)
[2020-05-28] MEDS: Nicotine 14 MG/24 Hr Patch TRDERM SCH (08:31)
[2020-05-28] MEDS ORDERED: hydrALAZINE 20 MG/ML SDV IVPUSH PRN (08:44)
[2020-05-28] MEDS: Sodium Chloride 0.9% 1,000 ML IV SCH ×3 (09:35→23:38)
[2020-05-28] MEDS: Acetaminophen/Butalbital/Caffeine 325-50-40 MG Tab PO PRN ×2 (10:23→16:57)
[2020-05-28] MEDS: cefTRIAXone 2 GM in Sodium Chloride 0.9% 100 ML IV SCH (13:14)
[2020-05-28] MEDS: Enoxaparin 30 MG/0.3 ML Syringe SUBCUT SCH (14:23)
--- NOTE | 2020-05-28 15:23 | PCM.PN ---
- General Info Date of Service: 05/28/20 Admission Dx/Problem (Free Text): Admission Diagnosis/Problem Admission Diagnosis/Problem Infection of parotid gland Subjective Update: No overnight or acute issues. She is doing better. Her pain is controlled. Her WBC improved to 13K. Functional Status: Denies: Pain Controlled - Review of Systems General: Denies: Fever, Chills HEENT: Reports: Other (improving per patient). Denies: Headaches Pulmonary: Denies: Shortness of Breath, Cough Cardiovascular: Denies: Chest Pain Gastrointestinal: Denies: Abdominal Pain, Nausea, Vomiting Genitourinary: Denies: Burning Musculoskeletal: Denies: Joint Pain Skin: Denies: Rash Neurological: Denies: Dizziness, Weakness Psychiatric: Denies: Depression, Anxiety - Patient Data Vitals - Most Recent: Last Vital Signs Temp 36.7 C 05/28/20 11:53 Pulse 63 05/28/20 11:53 Resp 16 05/28/20 11:53 BP 117/70 05/28/20 11:53 Pulse Ox 98 05/28/20 14:00 Weight - Most Recent: 98.52 kg I&O - Last 24 Hours: Intake & Output 05/28/20 05/28/20 05/28/20 06:59 14:59 22:59 Intake Total 100 360 Output Total 800 1000 Balance -700 -640 Lab Results Last 24 Hours: Laboratory Results - last 24 hr 05/28/20 05/28/20 Range/Units 06:05 06:05 WBC 13.04 H (3.98-10.04) K/mm3 RBC 3.63 L (3.98-5.22) M/mm3 Hgb 10.6 L D (11.2-15.7) gm/dl Hct 32.3 L (34.1-44.9) % MCV 89.0 (79.4-94.8) fl MCH 29.2 (25.6-32.2) pg MCHC 32.8 (32.2-35.5) g/dl RDW Std Deviation 43.7 (36.4-46.3) fL Plt Count 313 (182-369) K/mm3 MPV 10.0 (9.4-12.3) fl Neut % (Auto) 75.5 H (34.0-71.1) % Lymph % (Auto) 12.9 L (19.3-51.7) % [place] % (Auto) 9.7 (4.7-12.5) % Eos % (Auto) 1.7 (0.7-5.8) Baso % (Auto) 0.2 (0.1-1.2) % Neut # (Auto) 9.84 H (1.56-6.13) K/mm3 Lymph # (Auto) 1.68 (1.18-3.74) K/mm3 [place] # (Auto) 1.27 H (0.24-0.36) K/mm3 Eos # (Auto) 0.22 (0.04-0.36) K/mm3 Baso # (Auto) 0.03 (0.01-0.08) K/mm3 Sodium 138 (136-145) mEq/L Potassium 3.6 (3.5-5.1) mEq/L Chloride 104 (98-107) mEq/L Carbon Dioxide 25 (21-32) mEq/L Anion Gap 12.6 (5-15) BUN 7 (7-18) mg/dL Creatinine 0.7 (0.55-1.02) mg/dL Est Cr Clr Drug Dosing 96.02 mL/min Estimated GFR (MDRD) > 60 (>60) mL/min BUN/Creatinine Ratio 10.0 L (14-18) Glucose 108 H (74-106) mg/dL Calcium 8.2 L (8.5-10.1) mg/dL Magnesium 2.0 (1.8-2.4) mg/dl Ramy Results Last 24 Hours: Microbiology 05/27/20 08:45 Aerobic Blood Culture - Preliminary Blood NO GROWTH AFTER 1 DAY Anaerobic Blood Culture - Preliminary NO GROWTH AFTER 1 DAY Med Orders - Current: Current Medications Acetaminophen (Tylenol) 650 mg PO Q4H PRN PRN Reason: Pain (Mild 1-3)/fever Last Admin: 05/28/20 04:33 Dose: 650 mg Documented by: Acetaminophen/Butalbital/Caffeine (Fioricet 325-50-40 Mg) 1 tab PO Q6H PRN PRN Reason: Headache/Pain Last Admin: 05/28/20 10:23 Dose: 1 tab Documented by: Enoxaparin Sodium (Lovenox) 30 mg SUBCUT Q24H LOUISE Last Admin: 05/28/20 14:23 Dose: 30 mg Documented by: Hydralazine HCl (Apresoline) 10 mg IVPUSH Q4H PRN PRN Reason: Hypertension Hydromorphone HCl (Dilaudid) 0.5 mg IVPUSH Q2H PRN PRN Reason: Pain (severe 7-10) Last Admin: 05/27/20 22:00 Dose: 0.5 mg Documented by: Sodium Chloride (Normal Saline) 1,000 mls @ 150 mls/hr IV ASDIRECTED [facility] Last Admin: 05/28/20 09:35 Dose: 150 mls/hr Documented by: Ceftriaxone Sodium 2 gm/ (Sodium Chloride) 100 mls @ 200 mls/hr IV Q24H [facility] Last Admin: 05/28/20 13:14 Dose: 200 mls/hr Documented by: Clindamycin Phosphate 900 mg/ (Premix) 50 mls @ 100 mls/hr IV Q8H [facility] Last Admin: 05/28/20 09:38 Dose: 100 mls/hr Documented by: Magnesium Hydroxide (Milk Of Magnesia) 30 ml PO Q12H PRN PRN Reason: Constipation Nicotine (Habitrol) 14 mg TRDERM DAILY [facility] Last Admin: 05/28/20 08:31 Dose: 14 mg Documented by: Ondansetron HCl (Zofran) 4 mg IV Q4H PRN PRN Reason: Nausea/Vomiting Oxycodone HCl (Oxycodone) 5 mg PO Q4H PRN PRN Reason: Pain (moderate 4-6) Last Admin: 05/27/20 23:53 Dose: 5 mg Documented by: Oxycodone HCl (Oxycodone) 10 mg PO Q4H PRN PRN Reason: Pain (severe 7-10) Last Admin: 05/28/20 13:12 Dose: 10 mg Documented by: Sodium Chloride (Saline Flush) 10 ml FLUSH ASDIRECTED PRN PRN Reason: Keep Vein Open Last Admin: 05/27/20 08:55 Dose: 10 ml Documented by: Sodium Chloride (Saline Flush) 10 ml FLUSH ASDIRECTED PRN PRN Reason: Keep Vein Open Discontinued Medications Hydromorphone HCl (Dilaudid) 0.5 mg IVPUSH ONETIME ONE Stop: 05/27/20 08:26 Last Admin: 05/27/20 08:50 Dose: 0.5 mg Documented by: Hydromorphone HCl (Dilaudid) 0.5 mg IVPUSH ONETIME ONE Stop: 05/27/20 12:25 Last Admin: 05/27/20 13:50 Dose: 0.5 mg Documented by: Clindamycin Phosphate 900 mg/ (Premix) 50 mls @ 100 mls/hr IV ONETIME ONE Stop: 05/27/20 09:39 Last Admin: 05/27/20 09:42 Dose: 100 mls/hr Documented by: Ceftriaxone Sodium 2 gm/ (Sodium Chloride) 100 mls @ 200 mls/hr IV ONETIME ONE Stop: 05/27/20 11:35 Last Admin: 05/27/20 12:20 Dose: 200 mls/hr Documented by: Clindamycin Phosphate 900 mg/ (Premix) 50 mls @ 100 mls/hr IV Q8H LOUISE Last Admin: 05/27/20 13:15 Dose: Not Given Documented by: Clindamycin Phosphate 900 mg/ (Premix) 50 mls @ 100 mls/hr IV Q8H LOUISE Iopamidol (Isovue-300 (61%)) 100 ml IVPUSH ONETIME ONE Stop: 05/27/20 10:20 Last Admin: 05/27/20 10:24 Dose: 100 ml Documented by: Oxycodone HCl (Oxycodone) 5 mg PO ONETIME ONE Stop: 05/28/20 02:16 Last Admin: 05/28/20 02:19 Dose: 5 mg Documented by: Sodium Chloride (Saline Flush) 10 ml FLUSH ONETIME ONE Stop: 05/27/20 10:20 Last Admin: 05/27/20 10:24 Dose: 10 ml Documented by: - Exam General: Alert, Oriented, Cooperative, No Acute Distress HEENT: Pupils Equal, Pupils Reactive, EOMI, Mucous Membr. 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 No edema or erythema.) Lungs: Clear to Auscultation, Normal Respiratory Effort Cardiovascular: Regular Rate, Regular Rhythm GI/Abdominal Exam: Normal Bowel Sounds, Soft, Non-Tender, No Organomegaly, No Distention, No Abnormal Bruit (Female) Exam: Deferred Back Exam: Normal Inspection, Full Range of Motion Extremities: Normal Inspection, Normal Range of Motion, Non-Tender, No Pedal Edema, Normal Capillary Refill Peripheral Pulses: 2+: Dorsalis Pedis (L), Dorsalis Pedis (R) Skin: Warm, Dry, Intact Neurological: No New Focal Deficit Psy/Mental Status: Alert, Normal Affect, Normal Mood Sepsis Event Note - Evaluation Sepsis Screening Result: No Definite Risk - Focused Exam Vital Signs: Vital Signs Temp Pulse Resp BP Pulse Ox 05/28/20 14:00 98 05/28/20 13:00 98 05/28/20 12:00 98 05/28/20 11:53 36.7 C 63 16 117/70 98 05/28/20 11:00 98 05/28/20 10:22 67 117/71 98 05/28/20 10:00 98 05/28/20 09:00 98 05/28/20 08:29 37.0 C 69 18 133/87 99 05/28/20 08:00 99 05/28/20 04:35 37.3 C 66 14 131/72 96 - Problem List Review Problem List Initiated/Reviewed/Updated: Yes - My Orders Last 24 Hours: My Active Orders 05/28/20 08:44 Acetaminophen/Butalbital/Caff [Fioricet 325-50-40 MG] 1 tab PO Q6H PRN hydrALAZINE [Apresoline] 10 mg IVPUSH Q4H PRN - Assessment Assessment:: Acute: Right Parotitis Leukocytosis Hyperglycemia Elevated CRP Level Mild hypoalbuminemia with Albumin of 3.3 Chronic: HTN HLD OA Hx/o CVA/Stroke Anemia Hx/o Leukemia Bone Disease Anxiety Depression Obesity - Plan Plan:: 05/27/20 * 54-year-old female with gradual onset of right facial pain and swelling that started about 3 days ago. * Patient was seen at the clinic 2 days ago and was started on steroids and pain medication. * History of parotiditis about 10 years ago. * Admits to smoking 1/2 pack a day for the past 30 years * Vitals in the ED reveal a temp of 100.0 Fahrenheit, pulse 72, respiratory rate 16, blood pressure 134/68, pulse ox 93% on room air. * Labs in the ED reveal WBC 17.87 platelet count 353, neutrophil percentage auto 81.8, C-reactive protein 15.6, patient is Covid negative, blood cultures were obtained * Per Dr. Zamora, CT of right face and right neck shows widespread edema and inflammatory change right face and neck with large mass, probable parotid measuring 3 x 5 cm, no abscess, see radiology report for details. CT also shows lymph nodes right neck. * Dr. Cross, ENT, [facility] As recommends Clindamycin 900mg IV q 8 hours and Rocephin 2gm IV q 24 hours. PLAN: * Admit to the M/S/P floor as an impatient. * VS q 4 h * strict I&O * Clindamycin 900mg IV q 8 hours * Rocephin 2gm IV q 24 hours * Lovenox for DVT prophylaxis * Nicotine patch q 24 hours * pain management * repeat labs in the am * soft diet * Pt is a full code. 05/28/20 * She is improving clinically * Continue current regimen of rocephin and clindamycin * Routine AM labs * Monitor inflammatory markers * Nicotine patch daily * DVT prophylaxis
[2020-05-28] MEDS: Rosuvastatin 10 MG Tab PO SCH (20:17)
[2020-05-28] MEDS: Zolpidem 10 MG Tab PO PRN (21:31)
[2020-05-29] MEDS: oxyCODONE 5 MG Tab PO PRN ×3 (00:58→19:46)
[2020-05-29] MEDS: Clindamycin Phosphate in D5W 900 MG in Premix Bag 1 BAG IV SCH ×6 (02:07→17:39)
[2020-05-29] MEDS: Acetaminophen 325 MG Tab PO PRN ×2 (03:01→19:45)
[2020-05-29] MEDS: Sodium Chloride 0.9% 1,000 ML IV SCH ×3 (06:42→21:37)
--- NOTE | 2020-05-29 08:01 | PCM.PN ---
- General Info Date of Service: 05/29/20 Admission Dx/Problem (Free Text): Admission Diagnosis/Problem Admission Diagnosis/Problem Infection of parotid gland Subjective Update: She had an uneventful night. Pain is controlled. Right sided facial swelling better. Her WBC is back to normal and CRP is down to 6.9. Functional Status: Reports: Pain Controlled - Review of Systems General: Denies: Fever, Chills HEENT: Reports: No Symptoms Pulmonary: Denies: Shortness of Breath Cardiovascular: Denies: Chest Pain Gastrointestinal: Denies: Abdominal Pain, Nausea, Vomiting Musculoskeletal: Denies: Joint Pain Skin: Denies: Rash Neurological: Denies: Dizziness Psychiatric: Denies: Depression, Anxiety - Patient Data Vitals - Most Recent: Last Vital Signs Temp 36.4 C 05/29/20 03:02 Pulse 58 L 05/29/20 06:51 Resp 18 05/29/20 03:02 BP 123/95 H 05/29/20 03:02 Pulse Ox 95 05/29/20 06:54 Weight - Most Recent: 98.52 kg I&O - Last 24 Hours: Intake & Output 05/28/20 05/29/20 05/29/20 22:59 06:59 14:59 Intake Total 1220 1100 1050 Output Total 300 900 Balance 585 815 2317 Lab Results Last 24 Hours: Laboratory Results - last 24 hr 05/29/20 05/29/20 Range/Units 06:35 06:35 WBC 8.89 (3.98-10.04) K/mm3 RBC 3.29 L (3.98-5.22) M/mm3 Hgb 9.7 L (11.2-15.7) gm/dl Hct 29.3 L (34.1-44.9) % MCV 89.1 (79.4-94.8) fl MCH 29.5 (25.6-32.2) pg MCHC 33.1 (32.2-35.5) g/dl RDW Std Deviation 43.4 (36.4-46.3) fL Plt Count 298 (182-369) K/mm3 MPV 9.4 (9.4-12.3) fl Neut % (Auto) 56.9 (34.0-71.1) % Lymph % (Auto) 27.7 (19.3-51.7) % [place] % (Auto) 9.0 (4.7-12.5) % Eos % (Auto) 6.0 H (0.7-5.8) Baso % (Auto) 0.4 (0.1-1.2) % Neut # (Auto) 5.06 (1.56-6.13) K/mm3 Lymph # (Auto) 2.46 (1.18-3.74) K/mm3 [place] # (Auto) 0.80 H (0.24-0.36) K/mm3 Eos # (Auto) 0.53 H (0.04-0.36) K/mm3 Baso # (Auto) 0.04 (0.01-0.08) K/mm3 Sodium 140 (136-145) mEq/L Potassium 3.7 (3.5-5.1) mEq/L Chloride 106 (98-107) mEq/L Carbon Dioxide 26 (21-32) mEq/L Anion Gap 11.7 (5-15) BUN 8 (7-18) mg/dL Creatinine 0.8 (0.55-1.02) mg/dL Est Cr Clr Drug Dosing 84.01 mL/min Estimated GFR (MDRD) > 60 (>60) mL/min BUN/Creatinine Ratio 10.0 L (14-18) Glucose 100 (74-106) mg/dL Calcium 8.3 L (8.5-10.1) mg/dL C-Reactive Protein 6.9 H* (<1.0) mg/dL Ramy Results Last 24 Hours: Microbiology 05/27/20 08:45 Aerobic Blood Culture - Preliminary Blood NO GROWTH AFTER 1 DAY Anaerobic Blood Culture - Preliminary NO GROWTH AFTER 1 DAY Med Orders - Current: Current Medications Acetaminophen (Tylenol) 650 mg PO Q4H PRN PRN Reason: Pain (Mild 1-3)/fever Last Admin: 05/29/20 03:01 Dose: 650 mg Documented by: Acetaminophen/Butalbital/Caffeine (Fioricet 325-50-40 Mg) 1 tab PO Q6H PRN PRN Reason: Headache/Pain Last Admin: 05/28/20 16:57 Dose: 1 tab Documented by: Citalopram Hydrobromide (Celexa) 40 mg PO DAILY [facility] Enoxaparin Sodium (Lovenox) 30 mg SUBCUT Q24H [facility] Last Admin: 05/28/20 14:23 Dose: 30 mg Documented by: Hydralazine HCl (Apresoline) 10 mg IVPUSH Q4H PRN PRN Reason: Hypertension Hydrochlorothiazide (Hydrochlorothiazide) 12.5 mg PO DAILY [facility] Hydromorphone HCl (Dilaudid) 0.5 mg IVPUSH Q2H PRN PRN Reason: Pain (severe 7-10) Last Admin: 05/27/20 22:00 Dose: 0.5 mg Documented by: Sodium Chloride (Normal Saline) 1,000 mls @ 150 mls/hr IV ASDIRECTED [facility] Last Admin: 05/29/20 06:42 Dose: 150 mls/hr Documented by: Ceftriaxone Sodium 2 gm/ (Sodium Chloride) 100 mls @ 200 mls/hr IV Q24H [facility] Last Admin: 05/28/20 13:14 Dose: 200 mls/hr Documented by: Clindamycin Phosphate 900 mg/ (Premix) 50 mls @ 100 mls/hr IV Q8H [facility] Last Admin: 05/29/20 02:07 Dose: 100 mls/hr Documented by: Lisinopril (Prinivil) 40 mg PO DAILY [facility] Magnesium Hydroxide (Milk Of Magnesia) 30 ml PO Q12H PRN PRN Reason: Constipation Naproxen (Naprosyn) 375 mg PO Q12HR [facility] Stop: 05/30/20 21:01 Last Admin: 05/28/20 20:17 Dose: 375 mg Documented by: Nicotine (Habitrol) 14 mg TRDERM DAILY [facility] Last Admin: 05/28/20 08:31 Dose: 14 mg Documented by: Ondansetron HCl (Zofran) 4 mg IV Q4H PRN PRN Reason: Nausea/Vomiting Oxycodone HCl (Oxycodone) 5 mg PO Q4H PRN PRN Reason: Pain (moderate 4-6) Last Admin: 05/27/20 23:53 Dose: 5 mg Documented by: Oxycodone HCl (Oxycodone) 10 mg PO Q4H PRN PRN Reason: Pain (severe 7-10) Last Admin: 05/29/20 00:58 Dose: 10 mg Documented by: Rosuvastatin Calcium (Crestor) 10 mg PO BEDTIME [facility] Last Admin: 05/28/20 20:17 Dose: 10 mg Documented by: Sodium Chloride (Saline Flush) 10 ml FLUSH ASDIRECTED PRN PRN Reason: Keep Vein Open Last Admin: 05/27/20 08:55 Dose: 10 ml Documented by: Sodium Chloride (Saline Flush) 10 ml FLUSH ASDIRECTED PRN PRN Reason: Keep Vein Open Zolpidem Tartrate (Ambien) 10 mg PO BEDTIME PRN PRN Reason: Insomnia Last Admin: 05/28/20 21:31 Dose: 10 mg Documented by: Discontinued Medications Hydromorphone HCl (Dilaudid) 0.5 mg IVPUSH ONETIME ONE Stop: 05/27/20 08:26 Last Admin: 05/27/20 08:50 Dose: 0.5 mg Documented by: Hydromorphone HCl (Dilaudid) 0.5 mg IVPUSH ONETIME ONE Stop: 05/27/20 12:25 Last Admin: 05/27/20 13:50 Dose: 0.5 mg Documented by: Clindamycin Phosphate 900 mg/ (Premix) 50 mls @ 100 mls/hr IV ONETIME ONE Stop: 05/27/20 09:39 Last Admin: 05/27/20 09:42 Dose: 100 mls/hr Documented by: Ceftriaxone Sodium 2 gm/ (Sodium Chloride) 100 mls @ 200 mls/hr IV ONETIME ONE Stop: 05/27/20 11:35 Last Admin: 05/27/20 12:20 Dose: 200 mls/hr Documented by: Clindamycin Phosphate 900 mg/ (Premix) 50 mls @ 100 mls/hr IV Q8H [facility] Last Admin: 05/27/20 13:15 Dose: Not Given Documented by: Clindamycin Phosphate 900 mg/ (Premix) 50 mls @ 100 mls/hr IV Q8H [facility] Iopamidol (Isovue-300 (61%)) 100 ml IVPUSH ONETIME ONE Stop: 05/27/20 10:20 Last Admin: 05/27/20 10:24 Dose: 100 ml Documented by: Oxycodone HCl (Oxycodone) 5 mg PO ONETIME ONE Stop: 05/28/20 02:16 Last Admin: 05/28/20 02:19 Dose: 5 mg Documented by: Sodium Chloride (Saline Flush) 10 ml FLUSH ONETIME ONE Stop: 05/27/20 10:20 Last Admin: 05/27/20 10:24 Dose: 10 ml Documented by: - Exam General: Alert, Oriented, Cooperative, No Acute Distress HEENT: Pupils Equal, Pupils Reactive, EOMI, Mucous Membr. Moist/[place] Neck: Supple, Lymphadenopathy, Other (right parotid: continues to improve-no erythema) Lungs: Clear to Auscultation, Normal Respiratory Effort Cardiovascular: Regular Rate, Regular Rhythm GI/Abdominal Exam: Normal Bowel Sounds, Soft, Non-Tender, No Organomegaly, No Distention, No Abnormal Bruit (Female) Exam: Deferred Back Exam: Normal Inspection, Decreased Range of Motion Extremities: Normal Inspection, Normal Range of Motion, No Pedal Edema, Normal Capillary Refill Peripheral Pulses: 2+: Dorsalis Pedis (L), Dorsalis Pedis (R) Skin: Warm, Dry, Intact Neurological: No New Focal Deficit Psy/Mental Status: Alert, Normal Affect, Normal Mood Sepsis Event Note - Evaluation Sepsis Screening Result: No Definite Risk - Focused Exam Vital Signs: Vital Signs Temp Pulse Resp BP Pulse Ox Pulse Ox 05/29/20 06:54 95 05/29/20 06:51 58 L 95 05/29/20 06:00 95 05/29/20 05:35 56 L 94 L 05/29/20 05:00 95 05/29/20 04:28 58 L 98 05/29/20 04:00 98 05/29/20 03:02 36.4 C 64 18 123/95 H 94 L 05/29/20 03:00 94 L 05/29/20 02:16 70 97 05/29/20 02:00 97 05/29/20 01:52 67 95 05/29/20 01:46 96 05/29/20 01:00 95 05/29/20 00:17 36.6 C 65 16 110/66 96 05/29/20 00:00 96 05/28/20 21:02 37.5 C 71 14 122/72 97 05/28/20 20:31 37.3 C 72 18 136/87 93 L - Problem List Review Problem List Initiated/Reviewed/Updated: Yes - My Orders Last 24 Hours: My Active Orders 05/28/20 08:44 Acetaminophen/Butalbital/Caff [Fioricet 325-50-40 MG] 1 tab PO Q6H PRN hydrALAZINE [Apresoline] 10 mg IVPUSH Q4H PRN 05/28/20 16:40 Zolpidem [Ambien] 10 mg PO BEDTIME PRN 05/28/20 21:00 Naproxen [Naprosyn] 375 mg PO Q12HR Rosuvastatin [Crestor] 10 mg PO BEDTIME 05/29/20 09:00 Citalopram [Celexa] 40 mg PO DAILY hydroCHLOROthiazide 12.5 mg PO DAILY lisinopriL [Prinivil] 40 mg PO DAILY 05/30/20 05:00 BMP [BASIC METABOLIC PANEL,BMP] [CHEM] DAILY CBC WITH AUTO DIFF [HEME] DAILY CRP [C-REACTIVE PROTEIN] [CHEM] DAILY 05/31/20 05:00 BMP [BASIC METABOLIC PANEL,BMP] [CHEM] DAILY CBC WITH AUTO DIFF [HEME] DAILY CRP [C-REACTIVE PROTEIN] [CHEM] DAILY - Assessment Assessment:: Acute: Right Parotitis, Improving S/p Leukocytosis S/p Hyperglycemia Elevated CRP Level, improving Mild hypoalbuminemia with Albumin of 3.3 Chronic: HTN HLD OA Hx/o CVA/Stroke Anemia Hx/o Leukemia Bone Disease Anxiety Depression Obesity - Plan Plan:: 05/27/20 * 54-year-old female with gradual onset of right facial pain and swelling that started about 3 days ago. * Patient was seen at the clinic 2 days ago and was started on steroids and pain medication. * History of parotiditis about 10 years ago. * Admits to smoking 1/2 pack a day for the past 30 years * Vitals in the ED reveal a temp of 100.0 Fahrenheit, pulse 72, respiratory rate 16, blood pressure 134/68, pulse ox 93% on room air. * Labs in the ED reveal WBC 17.87 platelet count 353, neutrophil percentage auto 81.8, C-reactive protein 15.6, patient is Covid negative, blood cultures were obtained * Per Dr. Zamora, CT of right face and right neck shows widespread edema and inflammatory change right face and neck with large mass, probable parotid measuring 3 x 5 cm, no abscess, see radiology report for details. CT also shows lymph nodes right neck. * Dr. Cross, ENT, [facility] recommends Clindamycin 900mg IV q 8 hours and Rocephin 2gm IV q 24 hours. PLAN: * Admit to the M/S/P floor as an impatient. * VS q 4 h * strict I&O * Clindamycin 900mg IV q 8 hours * Rocephin 2gm IV q 24 hours * Lovenox for DVT prophylaxis * Nicotine patch q 24 hours * pain management * repeat labs in the am * soft diet * Pt is a full code. 05/28/20 * She is improving clinically * Continue current regimen of rocephin and clindamycin * Routine AM labs * Monitor inflammatory markers * Nicotine patch daily * DVT prophylaxis 05/29/20 * Continue current abx regimen * Continue Naproxen BID for anti-inflammation * Routine AM Labs and CRP level * DVT prophylaxis
[2020-05-29] MEDS: Nicotine 14 MG/24 Hr Patch TRDERM SCH (09:19)
[2020-05-29] MEDS: Lisinopril 20 MG Tab PO SCH (09:20)
[2020-05-29] MEDS: Hydrochlorothiazide 12.5 MG Cap PO SCH (09:20)
[2020-05-29] MEDS: Citalopram 20 MG Tab PO SCH (09:21)
[2020-05-29] MEDS: HYDROmorphone 0.5 MG/0.5 ML Syringe IVPUSH PRN (12:03)
[2020-05-29] MEDS: cefTRIAXone 2 GM in Sodium Chloride 0.9% 100 ML IV SCH ×2 (12:10→19:01)
[2020-05-29] MEDS: Acetaminophen/Butalbital/Caffeine 325-50-40 MG Tab PO PRN (14:07)
[2020-05-29] MEDS: Enoxaparin 30 MG/0.3 ML Syringe SUBCUT SCH (15:23)
[2020-05-29] MEDS: Zolpidem 10 MG Tab PO PRN (21:38)
[2020-05-29] MEDS: Rosuvastatin 10 MG Tab PO SCH (21:38)
[2020-05-30] MEDS: oxyCODONE 5 MG Tab PO PRN ×5 (02:09→21:42)
[2020-05-30] MEDS: Acetaminophen 325 MG Tab PO PRN (02:10)
[2020-05-30] MEDS: Clindamycin Phosphate in D5W 900 MG in Premix Bag 1 BAG IV SCH ×6 (02:13→17:53)
[2020-05-30] MEDS: Sodium Chloride 0.9% 1,000 ML IV SCH (04:33)
[2020-05-30] MEDS: Hydrochlorothiazide 12.5 MG Cap PO SCH (08:40)
[2020-05-30] MEDS: Lisinopril 20 MG Tab PO SCH (08:42)
[2020-05-30] MEDS: Nicotine 14 MG/24 Hr Patch TRDERM SCH (08:45)
[2020-05-30] MEDS: Citalopram 20 MG Tab PO SCH (08:45)
[2020-05-30] MEDS ORDERED: Iopamidol 612 MG/ML 100 ML Bottle IVPUSH ONE (09:58)
[2020-05-30] MEDS ORDERED: Sodium Chloride 0.9% 10 ML Syringe FLUSH PRN (09:58)
--- NOTE | 2020-05-30 10:08 | CT ---
PROCEDURE INFORMATION: Exam: CT Maxillofacial With Contrast Exam date and time: 05/27/2020 9:08 AM Age: 54 years old Clinical indication: Face pain; Patient HX: Reason for exam: Severe R facial pain, swelling, fever, abcess? TECHNIQUE: Imaging protocol: Computed tomography images of the face with intravenous contrast. Radiation optimization: All CT scans at this facility use at least one of these dose optimization techniques: automated exposure control; mA and/or kV adjustment per patient size (includes targeted exams where dose is matched to clinical indication); or iterative reconstruction. Contrast material: ISOVUE 300; Contrast volume: 100 ml; Contrast route: INTRAVENOUS (IV); COMPARISON: No relevant prior studies available. FINDINGS: Orbital cavity: Orbits are normal. Globes are unremarkable. Bones/joints: No acute fracture. Paranasal sinuses: Normal. No air-fluid levels. Soft tissues: There is soft tissue edema inflammatory changes involving the right cheek and face. There is a large mass possibly arising from the parotid gland measuring 50 by 31 mm. There is no distinct fluid collection. The masseter muscle is enlarged. Lymph nodes: There is an enlarged carotid chain lymph node on the left measuring 18 x 12 mm. Other smaller lymph nodes seen throughout the neck. The parotid mass extends 2 the carotid space on the left. IMPRESSION: Large mass on the right neck possibly parotid. This extends to the carotid space and there is at large adenopathy more inferior. Inflammatory changes seen within the subcutaneous tissues but no distinct fluid collection to suggest an abscess. Thank you for allowing us to participate in the care of your patient. Dictated and Authenticated by: Haresh Tinajero MD 05/27/2020 11:01 AM Central Time ([place] & [place]) [place]
--- NOTE | 2020-05-30 12:08 | PCM.PN ---
- General Info Date of Service: 05/30/20 Admission Dx/Problem (Free Text): Admission Diagnosis/Problem Admission Diagnosis/Problem Infection of parotid gland Subjective Update: Patient doing well. Swelling significantly decreased. Taking p.o. very well. Functional Status: Reports: Pain Controlled, Tolerating Diet, Ambulating, Urinating - Review of Systems General: Reports: No Symptoms HEENT: Reports: Other (Right cheek pain in the preauricular area; swelling still noted to right cheek preauricle) Pulmonary: Reports: No Symptoms Cardiovascular: Reports: No Symptoms Gastrointestinal: Reports: No Symptoms Genitourinary: Reports: No Symptoms Musculoskeletal: Reports: No Symptoms Skin: Reports: No Symptoms Neurological: Reports: No Symptoms Psychiatric: Reports: No Symptoms - Patient Data Vitals - Most Recent: Last Vital Signs Temp 98.8 F 05/30/20 08:46 Pulse 65 05/30/20 08:46 Resp 16 05/30/20 08:46 BP 117/78 05/30/20 08:46 Pulse Ox 98 05/30/20 10:18 Weight - Most Recent: 217 lb 3.2 oz I&O - Last 24 Hours: Intake & Output 05/29/20 05/30/20 05/30/20 22:59 06:59 14:59 Intake Total 760 1500 0 Output Total 600 1200 Balance 160 300 0 Lab Results Last 24 Hours: Laboratory Results - last 24 hr 05/30/20 05/30/20 Range/Units 06:00 06:00 WBC 9.09 (3.98-10.04) K/mm3 RBC 3.36 L (3.98-5.22) M/mm3 Hgb 9.7 L (11.2-15.7) gm/dl Hct 29.5 L (34.1-44.9) % MCV 87.8 (79.4-94.8) fl MCH 28.9 (25.6-32.2) pg MCHC 32.9 (32.2-35.5) g/dl RDW Std Deviation 42.9 (36.4-46.3) fL Plt Count 335 (182-369) K/mm3 MPV 9.7 (9.4-12.3) fl Neut % (Auto) 55.1 (34.0-71.1) % Lymph % (Auto) 31.5 (19.3-51.7) % [place] % (Auto) 7.7 (4.7-12.5) % Eos % (Auto) 5.3 (0.7-5.8) Baso % (Auto) 0.4 (0.1-1.2) % Neut # (Auto) 5.01 (1.56-6.13) K/mm3 Lymph # (Auto) 2.86 (1.18-3.74) K/mm3 [place] # (Auto) 0.70 H (0.24-0.36) K/mm3 Eos # (Auto) 0.48 H (0.04-0.36) K/mm3 Baso # (Auto) 0.04 (0.01-0.08) K/mm3 Sodium 142 (136-145) mEq/L Potassium 3.6 (3.5-5.1) mEq/L Chloride 107 (98-107) mEq/L Carbon Dioxide 25 (21-32) mEq/L Anion Gap 13.6 (5-15) BUN 6 L (7-18) mg/dL Creatinine 0.7 (0.55-1.02) mg/dL Est Cr Clr Drug Dosing 96.02 mL/min Estimated GFR (MDRD) > 60 (>60) mL/min BUN/Creatinine Ratio 8.6 L (14-18) Glucose 103 (74-106) mg/dL Calcium 8.3 L (8.5-10.1) mg/dL C-Reactive Protein 4.2 H* (<1.0) mg/dL Ramy Results Last 24 Hours: Microbiology 05/27/20 08:45 Aerobic Blood Culture - Preliminary Blood NO GROWTH AFTER 3 DAYS Anaerobic Blood Culture - Preliminary NO GROWTH AFTER 3 DAYS Med Orders - Current: Current Medications Acetaminophen (Tylenol) 650 mg PO Q4H PRN PRN Reason: Pain (Mild 1-3)/fever Last Admin: 05/30/20 02:10 Dose: 650 mg Documented by: Acetaminophen/Butalbital/Caffeine (Fioricet 325-50-40 Mg) 1 tab PO Q6H PRN PRN Reason: Headache/Pain Last Admin: 05/29/20 14:07 Dose: 1 tab Documented by: Citalopram Hydrobromide (Celexa) 40 mg PO DAILY [facility] Last Admin: 05/30/20 08:45 Dose: 40 mg Documented by: Enoxaparin Sodium (Lovenox) 40 mg SUBCUT Q24H [facility] Hydralazine HCl (Apresoline) 10 mg IVPUSH Q4H PRN PRN Reason: Hypertension Hydrochlorothiazide (Hydrochlorothiazide) 12.5 mg PO DAILY [facility] Last Admin: 05/30/20 08:40 Dose: 12.5 mg Documented by: Hydromorphone HCl (Dilaudid) 0.5 mg IVPUSH Q2H PRN PRN Reason: Pain (severe 7-10) Last Admin: 05/29/20 12:03 Dose: 0.5 mg Documented by: Ceftriaxone Sodium 2 gm/ (Sodium Chloride) 100 mls @ 200 mls/hr IV Q24H [facility] Last Admin: 05/29/20 19:01 Dose: Not Given Documented by: Clindamycin Phosphate 900 mg/ (Premix) 50 mls @ 100 mls/hr IV Q8H [facility] Last Admin: 05/30/20 10:31 Dose: 100 mls/hr Documented by: Lisinopril (Prinivil) 40 mg PO DAILY [facility] Last Admin: 05/30/20 08:42 Dose: 40 mg Documented by: Magnesium Hydroxide (Milk Of Magnesia) 30 ml PO Q12H PRN PRN Reason: Constipation Naproxen (Naprosyn) 375 mg PO Q12HR [facility] Stop: 05/30/20 21:01 Last Admin: 05/30/20 08:45 Dose: 375 mg Documented by: Nicotine (Habitrol) 14 mg TRDERM DAILY [facility] Last Admin: 05/30/20 08:45 Dose: 14 mg Documented by: Ondansetron HCl (Zofran) 4 mg IV Q4H PRN PRN Reason: Nausea/Vomiting Oxycodone HCl (Oxycodone) 5 mg PO Q4H PRN PRN Reason: Pain (moderate 4-6) Last Admin: 05/27/20 23:53 Dose: 5 mg Documented by: Oxycodone HCl (Oxycodone) 10 mg PO Q4H PRN PRN Reason: Pain (severe 7-10) Last Admin: 05/30/20 08:41 Dose: 10 mg Documented by: Rosuvastatin Calcium (Crestor) 10 mg PO BEDTIME [facility] Last Admin: 05/29/20 21:38 Dose: 10 mg Documented by: Sodium Chloride (Saline Flush) 10 ml FLUSH ASDIRECTED PRN PRN Reason: Keep Vein Open Last Admin: 05/27/20 08:55 Dose: 10 ml Documented by: Sodium Chloride (Saline Flush) 10 ml FLUSH ASDIRECTED PRN PRN Reason: Keep Vein Open Sodium Chloride (Saline Flush) 10 ml FLUSH ONETIME PRN PRN Reason: IV FLUSH Last Admin: 05/30/20 10:21 Dose: 10 ml Documented by: Zolpidem Tartrate (Ambien) 10 mg PO BEDTIME PRN PRN Reason: Insomnia Last Admin: 05/29/20 21:38 Dose: 10 mg Documented by: Discontinued Medications Enoxaparin Sodium (Lovenox) 30 mg SUBCUT Q24H [facility] Last Admin: 05/29/20 15:23 Dose: 30 mg Documented by: Hydromorphone HCl (Dilaudid) 0.5 mg IVPUSH ONETIME ONE Stop: 05/27/20 08:26 Last Admin: 05/27/20 08:50 Dose: 0.5 mg Documented by: Hydromorphone HCl (Dilaudid) 0.5 mg IVPUSH ONETIME ONE Stop: 05/27/20 12:25 Last Admin: 05/27/20 13:50 Dose: 0.5 mg Documented by: Sodium Chloride (Normal Saline) 1,000 mls @ 150 mls/hr IV ASDIRECTED [facility] Last Admin: 05/30/20 04:33 Dose: 150 mls/hr Documented by: Clindamycin Phosphate 900 mg/ (Premix) 50 mls @ 100 mls/hr IV ONETIME ONE Stop: 05/27/20 09:39 Last Admin: 05/27/20 09:42 Dose: 100 mls/hr Documented by: Ceftriaxone Sodium 2 gm/ (Sodium Chloride) 100 mls @ 200 mls/hr IV ONETIME ONE Stop: 05/27/20 11:35 Last Admin: 05/27/20 12:20 Dose: 200 mls/hr Documented by: Clindamycin Phosphate 900 mg/ (Premix) 50 mls @ 100 mls/hr IV Q8H [facility] Last Admin: 05/27/20 13:15 Dose: Not Given Documented by: Clindamycin Phosphate 900 mg/ (Premix) 50 mls @ 100 mls/hr IV Q8H [facility] Iopamidol (Isovue-300 (61%)) 100 ml IVPUSH ONETIME ONE Stop: 05/27/20 10:20 Last Admin: 05/27/20 10:24 Dose: 100 ml Documented by: Iopamidol (Isovue-300 (61%)) 100 ml IVPUSH ONETIME ONE Stop: 05/30/20 09:59 Last Admin: 05/30/20 10:21 Dose: 100 ml Documented by: Oxycodone HCl (Oxycodone) 5 mg PO ONETIME ONE Stop: 05/28/20 02:16 Last Admin: 05/28/20 02:19 Dose: 5 mg Documented by: Sodium Chloride (Saline Flush) 10 ml FLUSH ONETIME ONE Stop: 05/27/20 10:20 Last Admin: 05/27/20 10:24 Dose: 10 ml Documented by: - Exam Quality Assessment: DVT Prophylaxis (Lovenox). No: Supplemental Oxygen General: Alert, Oriented, Cooperative, No Acute Distress HEENT: Pupils Equal, Pupils Reactive, Mucous Membr. Moist/[place] Neck: Supple, Trachea Midline. No: Lymphadenopathy Lungs: Clear to Auscultation, Normal Respiratory Effort Cardiovascular: Regular Rate, Regular Rhythm, No Murmurs GI/Abdominal Exam: Normal Bowel Sounds, Soft, Non-Tender, No Distention (Female) Exam: Deferred Back Exam: Normal Inspection, Full Range of Motion Extremities: Normal Inspection, Normal Range of Motion, Non-Tender, No Pedal Edema, Normal Capillary Refill Peripheral Pulses: 2+: Radial (L), Radial (R), Dorsalis Pedis (L), Dorsalis Pedis (R) Skin: Warm, Dry, Intact Neurological: No New Focal Deficit Psy/Mental Status: Alert, Normal Affect, Normal Mood Sepsis Event Note - Evaluation Sepsis Screening Result: No Definite Risk - Focused Exam Vital Signs: Vital Signs Temp Pulse Resp BP Pulse Ox Pulse Ox 05/30/20 10:18 98 05/30/20 08:46 98.8 F 65 16 117/78 98 05/30/20 08:42 117/78 05/30/20 02:24 98.1 F 62 14 119/72 95 - Problem List & Annotations (1) Acute parotitis SNOMED Code(s): 55697886, 67236943 Code(s): K11.21 - ACUTE SIALOADENITIS Status: Acute Priority: High Current Visit: Yes - Problem List Review Problem List Initiated/Reviewed/Updated: Yes - My Orders Last 24 Hours: My Active Orders 05/30/20 09:50 Max Facial Sinus w Cont [CT] Routine 05/30/20 15:00 Enoxaparin [Lovenox] 40 mg SUBCUT Q24H - Assessment Assessment:: Acute: Right Parotitis, Improving S/p Leukocytosis S/p Hyperglycemia Elevated CRP Level, improving Mild hypoalbuminemia with Albumin of 3.3 Chronic: HTN HLD OA Hx/o CVA/Stroke Anemia Hx/o Leukemia Bone Disease Anxiety Depression Obesity - Plan Plan:: 05/27/20 * 54-year-old female with gradual onset of right facial pain and swelling that started about 3 days ago. * Patient was seen at the clinic 2 days ago and was started on steroids and pain medication. * History of parotiditis about 10 years ago. * Admits to smoking 1/2 pack a day for the past 30 years * Vitals in the ED reveal a temp of 100.0 Fahrenheit, pulse 72, respiratory rate 16, blood pressure 134/68, pulse ox 93% on room air. * Labs in the ED reveal WBC 17.87 platelet count 353, neutrophil percentage auto 81.8, C-reactive protein 15.6, patient is Covid negative, blood cultures were obtained * Per Dr. Zamora, CT of right face and right neck shows widespread edema and inflammatory change right face and neck with large mass, probable parotid measuring 3 x 5 cm, no abscess, see radiology report for details. CT also shows lymph nodes right neck. * Dr. Cross, ENT, [facility] recommends Clindamycin 900mg IV q 8 hours and Rocephin 2gm IV q 24 hours. PLAN: * Admit to the M/S/P floor as an impatient. * VS q 4 h * strict I&O * Clindamycin 900mg IV q 8 hours * Rocephin 2gm IV q 24 hours * Lovenox for DVT prophylaxis * Nicotine patch q 24 hours * pain management * repeat labs in the am * soft diet * Pt is a full code. 05/28/20 * She is improving clinically * Continue current regimen of rocephin and clindamycin * Routine AM labs * Monitor inflammatory markers * Nicotine patch daily * DVT prophylaxis 05/29/20 * Continue current abx regimen * Continue Naproxen BID for anti-inflammation * Routine AM Labs and CRP level * DVT prophylaxis 05/30/20 * Continue IV antibiotics for total of 5 days. * Follow-up CT scan today as recommended by ENT physician * Continue naproxen * Lovenox for DVT prevention * Recheck labs in the a.m. * Saline lock IV as patient is taking orals well
[2020-05-30] MEDS: cefTRIAXone 2 GM in Sodium Chloride 0.9% 100 ML IV SCH (13:35)
--- NOTE | 2020-05-30 13:56 | CT ---
PROCEDURE INFORMATION: Exam: CT Maxillofacial With Contrast Exam date and time: 05/30/2020 10:06 AM Age: 54 years old Clinical indication: Mass, lump, or swelling; Patient HX: RT face swelling f/u parotiditis TECHNIQUE: Imaging protocol: Computed tomography images of the face with intravenous contrast. Radiation optimization: All CT scans at this facility use at least one of these dose optimization techniques: automated exposure control; mA and/or kV adjustment per patient size (includes targeted exams where dose is matched to clinical indication); or iterative reconstruction. Contrast material: ISOVUE 300; Contrast volume: 80 ml; Contrast route: INTRAVENOUS (IV); COMPARISON: CT Max Facial Sinus w Cont 05/27/2020 9:08 AM FINDINGS: Orbital cavity: Orbits are normal. Globes are unremarkable. Bones/joints: No acute fracture. Paranasal sinuses: Normal. No air-fluid levels. Soft tissues: Unremarkable. Submandibular/Parotid glands: The parotid gland on the right is enlarged and inflamed. No stones are identified within the parotid duct. This could be due to parotitis. IMPRESSION: Enlarged inflamed parotid gland on the right possibly due to infection. No stones are identified within the parotid duct. No abscess currently present. Thank you for allowing us to participate in the care of your patient. Dictated and Authenticated by: Edwin Moreno MD 05/30/2020 11:27 AM Central Time ([place] & [place]) [facility]
[2020-05-30] MEDS: Enoxaparin 40 MG/0.4 ML Syringe SUBCUT SCH (15:05)
[2020-05-30] MEDS: Rosuvastatin 10 MG Tab PO SCH (21:41)
[2020-05-31] MEDS: Acetaminophen/Butalbital/Caffeine 325-50-40 MG Tab PO PRN ×2 (00:52→20:31)
[2020-05-31] MEDS: Acetaminophen 325 MG Tab PO PRN (00:54)
[2020-05-31] MEDS: Clindamycin Phosphate in D5W 900 MG in Premix Bag 1 BAG IV SCH ×6 (02:13→18:18)
[2020-05-31] MEDS: oxyCODONE 5 MG Tab PO PRN ×2 (08:51→11:52)
[2020-05-31] MEDS: Nicotine 14 MG/24 Hr Patch TRDERM SCH (10:02)
[2020-05-31] MEDS: Lisinopril 20 MG Tab PO SCH (10:08)
[2020-05-31] MEDS: Hydrochlorothiazide 12.5 MG Cap PO SCH (10:09)
[2020-05-31] MEDS: Potassium Chloride 20 MEQ Tab.ER PO SCH ×2 (10:10→13:23)
[2020-05-31] MEDS: Citalopram 20 MG Tab PO SCH (10:10)
[2020-05-31] MEDS: cefTRIAXone 2 GM in Sodium Chloride 0.9% 100 ML IV SCH (13:23)
--- NOTE | 2020-05-31 13:49 | PCM.PN ---
- General Info Date of Service: 05/31/20 Admission Dx/Problem (Free Text): Admission Diagnosis/Problem Admission Diagnosis/Problem Infection of parotid gland Subjective Update: States she feels well. Still having discomfort in her right cheek/jaw. States she is requiring less pain medications. Functional Status: Reports: Pain Controlled, Tolerating Diet, Ambulating, Urinating - Review of Systems General: Reports: No Symptoms HEENT: Reports: Other (right jaw, cheek pain) Pulmonary: Reports: No Symptoms Cardiovascular: Reports: No Symptoms Gastrointestinal: Reports: No Symptoms Genitourinary: Reports: No Symptoms Musculoskeletal: Reports: No Symptoms Skin: Reports: No Symptoms Neurological: Reports: No Symptoms Psychiatric: Reports: No Symptoms - Patient Data Vitals - Most Recent: Last Vital Signs Temp 98.1 F 05/31/20 08:09 Pulse 61 05/31/20 08:09 Resp 16 05/31/20 08:09 BP 130/69 05/31/20 10:08 Pulse Ox 96 05/31/20 08:09 Weight - Most Recent: 215 lb I&O - Last 24 Hours: Intake & Output 05/30/20 05/31/20 05/31/20 22:59 06:59 14:59 Intake Total 820 Output Total 900 2050 1000 Balance -80 -2049 -1000 Lab Results Last 24 Hours: Laboratory Results - last 24 hr 05/31/20 05/31/20 Range/Units 04:11 04:11 WBC 10.94 H (3.98-10.04) K/mm3 RBC 3.63 L (3.98-5.22) M/mm3 Hgb 10.5 L (11.2-15.7) gm/dl Hct 31.9 L (34.1-44.9) % MCV 87.9 (79.4-94.8) fl MCH 28.9 (25.6-32.2) pg MCHC 32.9 (32.2-35.5) g/dl RDW Std Deviation 42.0 (36.4-46.3) fL Plt Count 397 H (182-369) K/mm3 MPV 10.4 (9.4-12.3) fl Neut % (Auto) 58.3 (34.0-71.1) % Lymph % (Auto) 28.9 (19.3-51.7) % Barber % (Auto) 6.8 (4.7-12.5) % Eos % (Auto) 5.1 (0.7-5.8) Baso % (Auto) 0.5 (0.1-1.2) % Neut # (Auto) 6.38 H (1.56-6.13) K/mm3 Lymph # (Auto) 3.16 (1.18-3.74) K/mm3 Barber # (Auto) 0.74 H (0.24-0.36) K/mm3 Eos # (Auto) 0.56 H (0.04-0.36) K/mm3 Baso # (Auto) 0.06 (0.01-0.08) K/mm3 Sodium 142 (136-145) mEq/L Potassium 3.3 L (3.5-5.1) mEq/L Chloride 106 (98-107) mEq/L Carbon Dioxide 27 (21-32) mEq/L Anion Gap 12.3 (5-15) BUN 6 L (7-18) mg/dL Creatinine 0.8 (0.55-1.02) mg/dL Est Cr Clr Drug Dosing 84.01 mL/min Estimated GFR (MDRD) > 60 (>60) mL/min BUN/Creatinine Ratio 7.5 L (14-18) Glucose 95 (74-106) mg/dL Calcium 9.1 (8.5-10.1) mg/dL C-Reactive Protein 3.0 H* (<1.0) mg/dL Ramy Results Last 24 Hours: Microbiology 05/27/20 08:45 Aerobic Blood Culture - Preliminary Blood NO GROWTH AFTER 4 DAYS Anaerobic Blood Culture - Preliminary NO GROWTH AFTER 4 DAYS Med Orders - Current: Current Medications Acetaminophen (Tylenol) 650 mg PO Q4H PRN PRN Reason: Pain (Mild 1-3)/fever Last Admin: 05/31/20 00:54 Dose: 650 mg Documented by: Acetaminophen/Butalbital/Caffeine (Fioricet 325-50-40 Mg) 1 tab PO Q6H PRN PRN Reason: Headache/Pain Last Admin: 05/31/20 00:52 Dose: 1 tab Documented by: Citalopram Hydrobromide (Celexa) 40 mg PO DAILY [facility] Last Admin: 05/31/20 10:10 Dose: 40 mg Documented by: Enoxaparin Sodium (Lovenox) 40 mg SUBCUT Q24H [facility] Last Admin: 05/30/20 15:05 Dose: 40 mg Documented by: Hydralazine HCl (Apresoline) 10 mg IVPUSH Q4H PRN PRN Reason: Hypertension Last Admin: 05/31/20 00:56 Dose: 10 mg Documented by: Hydrochlorothiazide (Hydrochlorothiazide) 12.5 mg PO DAILY [facility] Last Admin: 05/31/20 10:09 Dose: 12.5 mg Documented by: Hydromorphone HCl (Dilaudid) 0.5 mg IVPUSH Q2H PRN PRN Reason: Pain (severe 7-10) Last Admin: 05/29/20 12:03 Dose: 0.5 mg Documented by: Ceftriaxone Sodium 2 gm/ (Sodium Chloride) 100 mls @ 200 mls/hr IV Q24H [facility] Last Admin: 05/31/20 13:23 Dose: 200 mls/hr Documented by: Clindamycin Phosphate 900 mg/ (Premix) 50 mls @ 100 mls/hr IV Q8H [facility] Last Admin: 05/31/20 09:55 Dose: 100 mls/hr Documented by: Lisinopril (Prinivil) 40 mg PO DAILY [facility] Last Admin: 05/31/20 10:08 Dose: 40 mg Documented by: Magnesium Hydroxide (Milk Of Magnesia) 30 ml PO Q12H PRN PRN Reason: Constipation Nicotine (Habitrol) 14 mg TRDERM DAILY [facility] Last Admin: 05/31/20 10:02 Dose: 14 mg Documented by: Ondansetron HCl (Zofran) 4 mg IV Q4H PRN PRN Reason: Nausea/Vomiting Oxycodone HCl (Oxycodone) 5 mg PO Q4H PRN PRN Reason: Pain (moderate 4-6) Last Admin: 05/31/20 11:52 Dose: 5 mg Documented by: Oxycodone HCl (Oxycodone) 10 mg PO Q4H PRN PRN Reason: Pain (severe 7-10) Last Admin: 05/30/20 13:41 Dose: 10 mg Documented by: Rosuvastatin Calcium (Crestor) 10 mg PO BEDTIME [facility] Last Admin: 05/30/20 21:41 Dose: 10 mg Documented by: Sodium Chloride (Saline Flush) 10 ml FLUSH ASDIRECTED PRN PRN Reason: Keep Vein Open Last Admin: 05/27/20 08:55 Dose: 10 ml Documented by: Sodium Chloride (Saline Flush) 10 ml FLUSH ASDIRECTED PRN PRN Reason: Keep Vein Open Sodium Chloride (Saline Flush) 10 ml FLUSH ONETIME PRN PRN Reason: IV FLUSH Last Admin: 05/30/20 10:21 Dose: 10 ml Documented by: Zolpidem Tartrate (Ambien) 10 mg PO BEDTIME PRN PRN Reason: Insomnia Last Admin: 05/29/20 21:38 Dose: 10 mg Documented by: Discontinued Medications Enoxaparin Sodium (Lovenox) 30 mg SUBCUT Q24H [facility] Last Admin: 05/29/20 15:23 Dose: 30 mg Documented by: Hydromorphone HCl (Dilaudid) 0.5 mg IVPUSH ONETIME ONE Stop: 05/27/20 08:26 Last Admin: 05/27/20 08:50 Dose: 0.5 mg Documented by: Hydromorphone HCl (Dilaudid) 0.5 mg IVPUSH ONETIME ONE Stop: 05/27/20 12:25 Last Admin: 05/27/20 13:50 Dose: 0.5 mg Documented by: Sodium Chloride (Normal Saline) 1,000 mls @ 150 mls/hr IV ASDIRECTED [facility] Last Admin: 05/30/20 04:33 Dose: 150 mls/hr Documented by: Clindamycin Phosphate 900 mg/ (Premix) 50 mls @ 100 mls/hr IV ONETIME ONE Stop: 05/27/20 09:39 Last Admin: 05/27/20 09:42 Dose: 100 mls/hr Documented by: Ceftriaxone Sodium 2 gm/ (Sodium Chloride) 100 mls @ 200 mls/hr IV ONETIME ONE Stop: 05/27/20 11:35 Last Admin: 05/27/20 12:20 Dose: 200 mls/hr Documented by: Clindamycin Phosphate 900 mg/ (Premix) 50 mls @ 100 mls/hr IV Q8H [facility] Last Admin: 05/27/20 13:15 Dose: Not Given Documented by: Clindamycin Phosphate 900 mg/ (Premix) 50 mls @ 100 mls/hr IV Q8H [facility] Iopamidol (Isovue-300 (61%)) 100 ml IVPUSH ONETIME ONE Stop: 05/27/20 10:20 Last Admin: 05/27/20 10:24 Dose: 100 ml Documented by: Iopamidol (Isovue-300 (61%)) 100 ml IVPUSH ONETIME ONE Stop: 05/30/20 09:59 Last Admin: 05/30/20 10:21 Dose: 100 ml Documented by: Naproxen (Naprosyn) 375 mg PO Q12HR [facility] Stop: 05/30/20 21:01 Last Admin: 05/30/20 21:41 Dose: 375 mg Documented by: Oxycodone HCl (Oxycodone) 5 mg PO ONETIME ONE Stop: 05/28/20 02:16 Last Admin: 05/28/20 02:19 Dose: 5 mg Documented by: Potassium Chloride (Klor-Con M20) 40 meq PO Q4H [facility] Stop: 05/31/20 13:01 Last Admin: 05/31/20 13:23 Dose: 40 meq Documented by: Sodium Chloride (Saline Flush) 10 ml FLUSH ONETIME ONE Stop: 05/27/20 10:20 Last Admin: 05/27/20 10:24 Dose: 10 ml Documented by: - Exam Quality Assessment: DVT Prophylaxis (Lovenox). No: Supplemental Oxygen General: Alert, Oriented, Cooperative, No Acute Distress HEENT: Pupils Equal, Pupils Reactive, Mucous Membr. Moist/[place] Neck: Supple, Trachea Midline. No: Lymphadenopathy Lungs: Clear to Auscultation, Normal Respiratory Effort Cardiovascular: Regular Rate, Regular Rhythm, No Murmurs GI/Abdominal Exam: Normal Bowel Sounds, Soft, Non-Tender, No Distention (Female) Exam: No: Deferred Back Exam: Normal Inspection, Full Range of Motion Extremities: Normal Inspection, Normal Range of Motion, Non-Tender, No Pedal Edema, Normal Capillary Refill Peripheral Pulses: 2+: Radial (L), Radial (R), Dorsalis Pedis (L), Dorsalis Pedis (R) Skin: Warm, Dry, Intact Neurological: No New Focal Deficit Psy/Mental Status: Alert, Normal Affect, Normal Mood Sepsis Event Note - Evaluation Sepsis Screening Result: No Definite Risk - Focused Exam Vital Signs: Vital Signs Temp Pulse Resp BP Pulse Ox 05/31/20 10:08 130/69 05/31/20 08:09 98.1 F 61 16 130/69 96 05/31/20 02:15 98.2 F 58 L 14 138/62 96 - Problem List & Annotations (1) Acute parotitis SNOMED Code(s): 64495860, 27491311 Code(s): K11.21 - ACUTE SIALOADENITIS Status: Acute Priority: High Current Visit: Yes - Problem List Review Problem List Initiated/Reviewed/Updated: Yes - My Orders Last 24 Hours: My Active Orders 05/30/20 15:00 Enoxaparin [Lovenox] 40 mg SUBCUT Q24H 05/31/20 11:18 Communication Order [RC] - Assessment Assessment:: Acute: Right Parotitis, Improving Leukocytosis 10.94 Hypokalemia 3.3 S/p Hyperglycemia Elevated CRP Level, improving Chronic: HTN HLD OA Hx/o CVA/Stroke Anemia Hx/o Leukemia Bone Disease Anxiety Depression Obesity - Plan Plan:: 05/27/20 * 54-year-old female with gradual onset of right facial pain and swelling that started about 3 days ago. * Patient was seen at the clinic 2 days ago and was started on steroids and pain medication. * History of parotiditis about 10 years ago. * Admits to smoking 1/2 pack a day for the past 30 years * Vitals in the ED reveal a temp of 100.0 Fahrenheit, pulse 72, respiratory rate 16, blood pressure 134/68, pulse ox 93% on room air. * Labs in the ED reveal WBC 17.87 platelet count 353, neutrophil percentage auto 81.8, C-reactive protein 15.6, patient is Covid negative, blood cultures were obtained * Per Dr. Zamora, CT of right face and right neck shows widespread edema and inflammatory change right face and neck with large mass, probable parotid measuring 3 x 5 cm, no abscess, see radiology report for details. CT also shows lymph nodes right neck. * Dr. Cross, ENT, . As recommends Clindamycin 900mg IV q 8 hours and Rocephin 2gm IV q 24 hours. PLAN: * Admit to the M/S/P floor as an impatient. * VS q 4 h * strict I&O * Clindamycin 900mg IV q 8 hours * Rocephin 2gm IV q 24 hours * Lovenox for DVT prophylaxis * Nicotine patch q 24 hours * pain management * repeat labs in the am * soft diet * Pt is a full code. 05/28/20 * She is improving clinically * Continue current regimen of rocephin and clindamycin * Routine AM labs * Monitor inflammatory markers * Nicotine patch daily * DVT prophylaxis 05/29/20 * Continue current abx regimen * Continue Naproxen BID for anti-inflammation * Routine AM Labs and CRP level * DVT prophylaxis 05/30/20 * Continue IV antibiotics for total of 5 days. * Follow-up CT scan today as recommended by ENT physician * Continue naproxen * Lovenox for DVT prevention * Recheck labs in the a.m. * Saline lock IV as patient is taking orals well 05/31/20 * day 5 of clindamycin and Rocephin * replace potassium * CT maxillofacial with contrast from 05/30/2020: Enlarged inflamed parotid gland on the right possibly due to infection. No stones identified within the parotid duct. No abscess currently present. * recheck labs in AM * Lovenox for dvt prophylaxis * Plan for discharge tomorrow.
[2020-05-31] MEDS: Enoxaparin 40 MG/0.4 ML Syringe SUBCUT SCH (15:25)
[2020-05-31] MEDS ORDERED: Sodium Chloride 0.9% 250 ML ONE (18:01)
[2020-05-31] MEDS: Rosuvastatin 10 MG Tab PO SCH (20:31)
[2020-05-31] MEDS: Zolpidem 10 MG Tab PO PRN (20:31)
[2020-06-01] MEDS: Clindamycin Phosphate in D5W 900 MG in Premix Bag 1 BAG IV SCH ×4 (02:03→10:04)
[2020-06-01] MEDS: Acetaminophen 325 MG Tab PO PRN (04:42)
[2020-06-01 08:43] VITALS: BP 133/66
[2020-06-01 08:44] VITALS: PULSE 57
[2020-06-01] MEDS: Citalopram 20 MG Tab PO SCH (09:04)
[2020-06-01] MEDS: Hydrochlorothiazide 12.5 MG Cap PO SCH (09:05)
[2020-06-01] MEDS: Lisinopril 20 MG Tab PO SCH (09:05)
[2020-06-01] MEDS: Nicotine 14 MG/24 Hr Patch TRDERM SCH (09:06)
[2020-06-01] MEDS: Acetaminophen/Butalbital/Caffeine 325-50-40 MG Tab PO PRN (11:28)
--- NOTE | 2020-06-01 11:32 | PCM.DCSUM1 ---
Discharge Summary - Hospital Course HPI Initial Comments: 54 yr old female comes in with R facial pain and swelling. Started about 3 days ago. Low grade fever, chills. Hx of something similar about 8 to 10 yrs ago. No recent cough, chest pain or difficulty breathing. No sore throat. She is not diabetic. States she was seen by her primary care physician 2 days ago at the clinic and was prescribed steroids at that time. Swelling has progressively gotten worse and she has developed trismus. States she has only been drinking water and eating some yogurt. Diagnosis: Stroke: No - Discharge Data Discharge Date: 06/01/20 (Admit date: 05/27/20) Discharge Disposition: Home, Self-Care 01 Condition: Good - Referral to Home Health Primary Care Physician: Poonam Reyna NP - Discharge Diagnosis/Problem(s) (1) Acute parotitis SNOMED Code(s): 28378312, [id number] ICD Code: K11.21 - ACUTE SIALOADENITIS Status: Acute Priority: High Current Visit: Yes - Patient Summary/Data Consults: Consultations 05/27/20 13:01 Consult to Case Management/[place] [CONS] Routine Hospital Course: Assessment/Plan Comment:: 05/27/20 * 54-year-old female with gradual onset of right facial pain and swelling that started about 3 days ago. * Patient was seen at the clinic 2 days ago and was started on steroids and pain medication. * History of parotiditis about 10 years ago. * Admits to smoking 1/2 pack a day for the past 30 years * Vitals in the ED reveal a temp of 100.0 Fahrenheit, pulse 72, respiratory rate 16, blood pressure 134/68, pulse ox 93% on room air. * Labs in the ED reveal WBC 17.87 platelet count 353, neutrophil percentage auto 81.8, C-reactive protein 15.6, patient is Covid negative, blood cultures were obtained * Per Dr. Zamora, CT of right face and right neck shows widespread edema and inflammatory change right face and neck with large mass, probable parotid measuring 3 x 5 cm, no abscess, see radiology report for details. CT also shows lymph nodes right neck. * Dr. Cross, ENT, [facility] recommends Clindamycin 900mg IV q 8 hours and Rocephin 2gm IV q 24 hours. PLAN: * Admit to the M/S/P floor as an impatient. * VS q 4 h * strict I&O * Clindamycin 900mg IV q 8 hours * Rocephin 2gm IV q 24 hours * Lovenox for DVT prophylaxis * Nicotine patch q 24 hours * pain management * repeat labs in the am * soft diet * Pt is a full code. 05/28/20 * She is improving clinically * Continue current regimen of rocephin and clindamycin * Routine AM labs * Monitor inflammatory markers * Nicotine patch daily * DVT prophylaxis 05/29/20 * Continue current abx regimen * Continue Naproxen BID for anti-inflammation * Routine AM Labs and CRP level * DVT prophylaxis 05/30/20 * Continue IV antibiotics for total of 5 days. * Follow-up CT scan today as recommended by ENT physician * Continue naproxen * Lovenox for DVT prevention * Recheck labs in the a.m. * Saline lock IV as patient is taking orals well 05/31/20 * day 5 of clindamycin and Rocephin * replace potassium * CT maxillofacial with contrast from 05/30/2020: Enlarged inflamed parotid gland on the right possibly due to infection. No stones identified within the parotid duct. No abscess currently present. * recheck labs in AM * Lovenox for dvt prophylaxis * Plan for discharge tomorrow. 06/01/20 * White count is slightly elevated at 12 however clinically the patient does look well. Swelling is significantly decreased to the right parotid area and pain is controlled. * Patient has been on 5 days of IV antibiotics with clindamycin and Rocephin IV. * Patient has been afebrile for the past 48 hours * Blood cultures show no growth * Will be discharged to home with Augmentin 875 mg twice daily for 10 days and clindamycin 450 mg 3 times daily x10 days. * Patient also requests to continue using a nicotine patch so a prescription has been sent to her pharmacy for this. * She is to follow-up with her primary care physician in 2 days to reevaluate parotiditis. * Continue naproxen twice daily for the next 7 days. Patient has been instructed to take this with food. - Patient Instructions Diet: Usual Diet as Tolerated Activity: As Tolerated Other/Special Instructions: May discharge to home. Follow up with Odalis Reyna on Saturday, June 03, 2020. Augmentin 875mg by mouth twice daily for 10 days. Clindamycin 450mg by mouth three times daily for 10 days. Fully complete 10 day course of antibiotics. Take aleve one tab twice daily for 7 more days. Make sure you take the aleve with food. Nicotine patch 14 mg topical daily. Follow up with Odalis Reyna regarding step down of nicotine patch. Should your condition worsen or change or you develop a fever or increase in swelling, follow up with your regular doctor or return to the emergency department. - Discharge Plan *PRESCRIPTION DRUG MONITORING PROGRAM REVIEWED*: No *COPY OF PRESCRIPTION DRUG MONITORING REPORT IN PATIENT AMOS: No Prescriptions/Med Rec: Amoxicillin/Potassium Clav [Augmentin 875-125 Tablet] 1 each PO BID #20 tablet Clindamycin HCl 150 mg PO TID #30 capsule Clindamycin HCl 300 mg PO TID #30 capsule Nicotine [Habitrol] 14 mg TRDERM DAILY #10 patch Home Medications: Home Meds Citalopram Hydrobromide [Celexa] 40 mg PO DAILY 05/27/20 [History] Zolpidem [Ambien] 10 mg PO BEDTIME PRN 05/27/20 [History] atorvaSTATin [Lipitor] 40 mg PO DAILY 05/27/20 [History] buPROPion [buPROPion XL] 150 mg PO DAILY 05/27/20 [History] hydroCHLOROthiazide [Hydrochlorothiazide] 12.5 mg PO DAILY 05/27/20 [History] lisinopriL [Lisinopril] 40 mg PO DAILY 05/27/20 [History] oxyCODONE HCl/Acetaminophen [Oxycodone-Acetaminophen 5-325] 5 - 325 mg PO Q6H PRN 05/27/20 [History] traMADol [Ultram] 100 mg PO Q6H PRN 05/27/20 [History] Amoxicillin/Potassium Clav [Augmentin 875-125 Tablet] 1 each PO BID #20 tablet 06/01/20 [Rx] Clindamycin HCl 150 mg PO TID #30 capsule 06/01/20 [Rx] Clindamycin HCl 300 mg PO TID #30 capsule 06/01/20 [Rx] Nicotine [Habitrol] 14 mg TRDERM DAILY #10 patch 06/01/20 [Rx] Oxygen Therapy Mode: Room Air Patient Handouts: Steps to Quit Smoking, Sepsis, Self Care, Adult Forms: ED Department Discharge Referrals: Poonam Reyna NP [Primary Care Provider] - Gricelda López RN [Registered Nurse] - 06/02/20 1:00 pm (This appt. is for smo jose cessation, patient would like this to over the phone. If unable to make this appt. or need to change please call and cancel.) - Discharge Summary/Plan Comment DC Time >30 min.: No - General Info Date of Service: 06/01/20 Admission Dx/Problem (Free Text: Admission Diagnosis/Problem Admission Diagnosis/Problem Infection of parotid gland Functional Status: Reports: Pain Controlled, Tolerating Diet, Ambulating, Urinating - Review of Systems General: Reports: No Symptoms HEENT: Reports: Other (Swelling still noted to right preauricular area however it is much decreased) Pulmonary: Reports: No Symptoms Cardiovascular: Reports: No Symptoms Gastrointestinal: Reports: No Symptoms Genitourinary: Reports: No Symptoms Musculoskeletal: Reports: No Symptoms Skin: Reports: No Symptoms Neurological: Reports: No Symptoms Psychiatric: Reports: No Symptoms - Patient Data Vitals - Most Recent: Last Vital Signs Temp 98.5 F 06/01/20 08:42 Pulse 55 L 06/01/20 08:42 Resp 16 06/01/20 08:42 BP 133/66 06/01/20 09:05 Pulse Ox 94 L 06/01/20 08:42 Weight - Most Recent: 213 lb 3.2 oz I&O - Last 24 hours: Intake & Output 05/31/20 06/01/20 06/01/20 22:59 06:59 14:59 Intake Total 620 200 Balance 620 200 Lab Results - Last 24 hrs: Laboratory Results - last 24 hr 06/01/20 06/01/20 Range/Units 08:59 08:59 WBC 12.09 H (3.98-10.04) K/mm3 RBC 3.84 L (3.98-5.22) M/mm3 Hgb 11.1 L (11.2-15.7) gm/dl Hct 33.0 L (34.1-44.9) % MCV 85.9 (79.4-94.8) fl MCH 28.9 (25.6-32.2) pg MCHC 33.6 (32.2-35.5) g/dl RDW Std Deviation 41.2 (36.4-46.3) fL Plt Count 407 H (182-369) K/mm3 MPV 10.1 (9.4-12.3) fl Neut % (Auto) 71.8 H (34.0-71.1) % Lymph % (Auto) 19.9 (19.3-51.7) % Elk % (Auto) 5.1 (4.7-12.5) % Eos % (Auto) 2.8 (0.7-5.8) Baso % (Auto) 0.4 (0.1-1.2) % Neut # (Auto) 8.67 H (1.56-6.13) K/mm3 Lymph # (Auto) 2.41 (1.18-3.74) K/mm3 Elk # (Auto) 0.62 H (0.24-0.36) K/mm3 Eos # (Auto) 0.34 (0.04-0.36) K/mm3 Baso # (Auto) 0.05 (0.01-0.08) K/mm3 Sodium 139 (136-145) mEq/L Potassium 4.0 (3.5-5.1) mEq/L Chloride 104 (98-107) mEq/L Carbon Dioxide 26 (21-32) mEq/L Anion Gap 13.0 (5-15) BUN 9 (7-18) mg/dL Creatinine 0.9 (0.55-1.02) mg/dL Est Cr Clr Drug Dosing 74.68 mL/min Estimated GFR (MDRD) > 60 (>60) mL/min BUN/Creatinine Ratio 10.0 L (14-18) Glucose 125 H (74-106) mg/dL Calcium 9.0 (8.5-10.1) mg/dL Magnesium 2.1 (1.8-2.4) mg/dl C-Reactive Protein 1.8 H* (<1.0) mg/dL [facility] Results - Last 24 hrs: Microbiology 05/27/20 08:45 Aerobic Blood Culture - Preliminary Blood NO GROWTH AFTER 5 DAYS Anaerobic Blood Culture - Preliminary NO GROWTH AFTER 5 DAYS Med Orders - Current: Current Medications Acetaminophen (Tylenol) 650 mg PO Q4H PRN PRN Reason: Pain (Mild 1-3)/fever Last Admin: 06/01/20 04:42 Dose: 650 mg Documented by: Acetaminophen/Butalbital/Caffeine (Fioricet 325-50-40 Mg) 1 tab PO Q6H PRN PRN Reason: Headache/Pain Last Admin: 06/01/20 11:28 Dose: 1 tab Documented by: Citalopram Hydrobromide (Celexa) 40 mg PO DAILY [facility] Last Admin: 06/01/20 09:04 Dose: 40 mg Documented by: Enoxaparin Sodium (Lovenox) 40 mg SUBCUT Q24H [facility] Last Admin: 05/31/20 15:25 Dose: 40 mg Documented by: Hydralazine HCl (Apresoline) 10 mg IVPUSH Q4H PRN PRN Reason: Hypertension Last Admin: 05/31/20 00:56 Dose: 10 mg Documented by: Hydrochlorothiazide (Hydrochlorothiazide) 12.5 mg PO DAILY [facility] Last Admin: 06/01/20 09:05 Dose: 12.5 mg Documented by: Hydromorphone HCl (Dilaudid) 0.5 mg IVPUSH Q2H PRN PRN Reason: Pain (severe 7-10) Last Admin: 05/29/20 12:03 Dose: 0.5 mg Documented by: Ceftriaxone Sodium 2 gm/ (Sodium Chloride) 100 mls @ 200 mls/hr IV Q24H [facility] Last Admin: 05/31/20 13:23 Dose: 200 mls/hr Documented by: Clindamycin Phosphate 900 mg/ (Premix) 50 mls @ 100 mls/hr IV Q8H [facility] Last Admin: 06/01/20 10:04 Dose: 100 mls/hr Documented by: Lisinopril (Prinivil) 40 mg PO DAILY [facility] Last Admin: 06/01/20 09:05 Dose: 40 mg Documented by: Magnesium Hydroxide (Milk Of Magnesia) 30 ml PO Q12H PRN PRN Reason: Constipation Nicotine (Habitrol) 14 mg TRDERM DAILY [facility] Last Admin: 06/01/20 09:06 Dose: 14 mg Documented by: Ondansetron HCl (Zofran) 4 mg IV Q4H PRN PRN Reason: Nausea/Vomiting Oxycodone HCl (Oxycodone) 5 mg PO Q4H PRN PRN Reason: Pain (moderate 4-6) Last Admin: 05/31/20 11:52 Dose: 5 mg Documented by: Oxycodone HCl (Oxycodone) 10 mg PO Q4H PRN PRN Reason: Pain (severe 7-10) Last Admin: 05/30/20 13:41 Dose: 10 mg Documented by: Rosuvastatin Calcium (Crestor) 10 mg PO BEDTIME [facility] Last Admin: 05/31/20 20:31 Dose: 10 mg Documented by: Sodium Chloride (Saline Flush) 10 ml FLUSH ASDIRECTED PRN PRN Reason: Keep Vein Open Last Admin: 05/27/20 08:55 Dose: 10 ml Documented by: Sodium Chloride (Saline Flush) 10 ml FLUSH ASDIRECTED PRN PRN Reason: Keep Vein Open Sodium Chloride (Saline Flush) 10 ml FLUSH ONETIME PRN PRN Reason: IV FLUSH Last Admin: 05/30/20 10:21 Dose: 10 ml Documented by: Zolpidem Tartrate (Ambien) 10 mg PO BEDTIME PRN PRN Reason: Insomnia Last Admin: 05/31/20 20:31 Dose: 10 mg Documented by: Discontinued Medications Enoxaparin Sodium (Lovenox) 30 mg SUBCUT Q24H [facility] Last Admin: 05/29/20 15:23 Dose: 30 mg Documented by: Hydromorphone HCl (Dilaudid) 0.5 mg IVPUSH ONETIME ONE Stop: 05/27/20 08:26 Last Admin: 05/27/20 08:50 Dose: 0.5 mg Documented by: Hydromorphone HCl (Dilaudid) 0.5 mg IVPUSH ONETIME ONE Stop: 05/27/20 12:25 Last Admin: 05/27/20 13:50 Dose: 0.5 mg Documented by: Sodium Chloride (Normal Saline) 1,000 mls @ 150 mls/hr IV ASDIRECTED [facility] Last Admin: 05/30/20 04:33 Dose: 150 mls/hr Documented by: Clindamycin Phosphate 900 mg/ (Premix) 50 mls @ 100 mls/hr IV ONETIME ONE Stop: 05/27/20 09:39 Last Admin: 05/27/20 09:42 Dose: 100 mls/hr Documented by: Ceftriaxone Sodium 2 gm/ (Sodium Chloride) 100 mls @ 200 mls/hr IV ONETIME ONE Stop: 05/27/20 11:35 Last Admin: 05/27/20 12:20 Dose: 200 mls/hr Documented by: Clindamycin Phosphate 900 mg/ (Premix) 50 mls @ 100 mls/hr IV Q8H [facility] Last Admin: 05/27/20 13:15 Dose: Not Given Documented by: Clindamycin Phosphate 900 mg/ (Premix) 50 mls @ 100 mls/hr IV Q8H [facility] Sodium Chloride (Normal Saline (Advbag)) Confirm Administered Dose 250 mls @ as directed .ROUTE .STK-MED ONE Stop: 05/31/20 18:02 Iopamidol (Isovue-300 (61%)) 100 ml IVPUSH ONETIME ONE Stop: 05/27/20 10:20 Last Admin: 05/27/20 10:24 Dose: 100 ml Documented by: Iopamidol (Isovue-300 (61%)) 100 ml IVPUSH ONETIME ONE Stop: 05/30/20 09:59 Last Admin: 05/30/20 10:21 Dose: 100 ml Documented by: Naproxen (Naprosyn) 375 mg PO Q12HR [facility] Stop: 05/30/20 21:01 Last Admin: 05/30/20 21:41 Dose: 375 mg Documented by: Oxycodone HCl (Oxycodone) 5 mg PO ONETIME ONE Stop: 05/28/20 02:16 Last Admin: 05/28/20 02:19 Dose: 5 mg Documented by: Potassium Chloride (Klor-Con M20) 40 meq PO Q4H [facility] Stop: 05/31/20 13:01 Last Admin: 05/31/20 13:23 Dose: 40 meq Documented by: Sodium Chloride (Saline Flush) 10 ml FLUSH ONETIME ONE Stop: 05/27/20 10:20 Last Admin: 05/27/20 10:24 Dose: 10 ml Documented by: - Exam Quality Assessment: Reports: DVT Prophylaxis (Lovenox) General: Reports: Alert, Oriented, Cooperative, No Acute Distress HEENT: Reports: Pupils Equal, Pupils Reactive, Mucous Membr. Moist/[place] Neck: Reports: Supple, Trachea Midline, Lymphadenopathy (Preauricular, parotid, tonsillar on the right) Lungs: Reports: Clear to Auscultation, Normal Respiratory Effort Cardiovascular: Reports: Regular Rate, Regular Rhythm, No Murmurs GI/Abdominal Exam: Normal Bowel Sounds, Soft, Non-Tender, No Distention (Female) Exam: Deferred Rectal (Female) Exam: Deferred Back Exam: Reports: Normal Inspection, Full Range of Motion Extremities: Normal Inspection, Normal Range of Motion, Non-Tender, No Pedal Edema, Normal Capillary Refill Skin: Reports: Warm, Dry, Intact Neurological: Reports: No New Focal Deficit Psy/Mental Status: Reports: Alert, Normal Affect, Normal Mood
[2020-06-01] MEDS: cefTRIAXone 2 GM in Sodium Chloride 0.9% 100 ML IV SCH (12:21)
== END 2020-06-01 13:55 | disposition home or self-care (01) | DRG 115 ==
LOC: JD.ED 07:36 → JD.OB 13:01
PROVIDERS: ADMIT Family Medicine; ATTEND Family Medicine
DX: K11.21 Acute sialoadenitis (principal); E78.5 Hyperlipidemia, unspecified; I10 Essential (primary) hypertension; Z90.710 Acquired absence of both cervix and uterus; Z86.73 Personal history of transient ischemic attack (TIA), and cerebral infarction without residual deficits; F41.9 Anxiety disorder, unspecified; F32.9 Major depressive disorder, single episode, unspecified; D64.9 Anemia, unspecified; Z90.49 Acquired absence of other specified parts of digestive tract; R73.9 Hyperglycemia, unspecified; M19.90 Unspecified osteoarthritis, unspecified site; E88.09 Other disorders of plasma-protein metabolism, not elsewhere classified; Z20.828 Contact with and (suspected) exposure to other viral communicable diseases
CPT/HCPCS: 36415; 70487; 70487-26; 80048; 80053; 83735; 85025; 86140; 87040; 96365; 96367; 96375; 96376; 99284; 99284-25; A9270-GY; J0360; J0696; J1170; J1650; J3490; J7030; J7050; Q9967; U0002

== ENCOUNTER 2022-07-22 09:59 | Emergency (ER) | payer BC, MEDICAID ==
[2022-07-22] MEDS ORDERED: cefTRIAXone 2 GM in Sodium Chloride 0.9% 100 ML IV ONE (12:19)
[2022-07-22 13:03] VITALS: BP 139/79; PULSE 68
== END 2022-07-22 13:52 | disposition home or self-care (01) ==
LOC: JD.ED 09:59
DX: N10 Acute pyelonephritis (principal); E78.00 Pure hypercholesterolemia, unspecified; I10 Essential (primary) hypertension; F17.210 Nicotine dependence, cigarettes, uncomplicated; Z86.73 Personal history of transient ischemic attack (TIA), and cerebral infarction without residual deficits; Z79.899 Other long term (current) drug therapy
CPT/HCPCS: 36415; 80053; 81001; 85025; 87086; 96365; 99283; J0696; 87088; 87186

== ENCOUNTER 2023-01-28 17:05 | Emergency (ER) | payer MEDICAID ==
[2023-01-28] MEDS ORDERED: Sodium Chloride 0.9% 10 ML Syringe FLUSH PRN (17:46)
[2023-01-28] MEDS ORDERED: cefTRIAXone 2 GM in Sodium Chloride 0.9% 100 ML IV ONE (17:48)
[2023-01-28 18:14] LABS: BASOPHILS ABSOLUTE AUTO 0.03 K/mm3 (0.01-0.08); BASOPHILS PERCENT AUTO 0.2 % (0.1-1.2); EOSINOPHILS ABSOLUTE AUTO 0.29 K/mm3 (0.04-0.36); EOSINOPHILS PERCENT AUTO 1.5 (0.7-5.8); HEMATOCRIT 38.5 % (34.1-44.9); HEMOGLOBIN 12.9 gm/dl (11.2-15.7); IMMATURE GRAN ABSOLUTE AUTO 0.05 K/mm3 (0.00-0.10); IMMATURE GRAN PERCENT AUTO 0.3 % (<=1.0); LYMPHOCYTES ABSOLUTE AUTO 4.05 K/mm3 (1.18-3.74); LYMPHOCYTES PERCENT AUTO 21.3 % (19.3-51.7); MEAN CORPUSCULAR HEMOGLOBIN 29.6 pg (25.6-32.2); MEAN CORPUSCULAR HGB CONC 33.5 g/dl (32.2-35.5); MEAN CORPUSCULAR VOLUME 88.3 fl (79.4-94.8); MEAN PLATELET VOLUME 9.5 fl (9.4-12.3); MONOCYTES PERCENT AUTO 5.8 % (4.7-12.5); NEUTROPHILS ABSOLUTE AUTO 13.52 K/mm3 (1.56-6.13); NEUTROPHILS PERCENT AUTO 70.9 % (34.0-71.1); PLATELET COUNT,PLT 404 K/mm3 (182-369); RED BLOOD CELL COUNT 4.36 M/mm3 (3.98-5.22); WHITE BLOOD CELL COUNT,WBC 19.04 K/mm3 (3.98-10.04)
[2023-01-28 18:36] LABS: ALBUMIN 3.6 g/dl (3.4-5.0); ANION GAP 14.5 (5-15); BILIRUBIN TOTAL 0.4 mg/dL (0.2-1.0); BUN/CREATININE RATIO 8.9 (14-18); C-REACTIVE PROTEIN 0.3 mg/dL (<1.0); CALCIUM 9.2 mg/dL (8.5-10.1); CREATININE 0.9 mg/dL (0.55-1.02); EST CRCL DRUG DOSING (CG) 72.07 mL/min; POTASSIUM,K 3.5 mEq/L (3.5-5.1); PROTEIN TOTAL,TP 7.4 g/dl (6.4-8.2)
[2023-01-28 19:42] VITALS: BP 126/75; PULSE 76
== END 2023-01-28 19:49 | disposition home or self-care (01) ==
LOC: JD.ED 17:05
DX: K11.21 Acute sialoadenitis (principal); E78.00 Pure hypercholesterolemia, unspecified; I10 Essential (primary) hypertension; E66.9 Obesity, unspecified; Z68.30 Body mass index [BMI] 30.0-30.9, adult; Z86.73 Personal history of transient ischemic attack (TIA), and cerebral infarction without residual deficits; Z79.899 Other long term (current) drug therapy; Z72.0 Tobacco use
CPT/HCPCS: 36415; 80053; 85025; 86140; 96365; 99283; J0696; J3490

== ENCOUNTER 2023-11-10 07:47 | Emergency (ER) | payer BC, MEDICAID ==
[2023-11-10] MEDS: methylPREDNISolone Sodium Succinate 125 MG/2 ML SDV IM ONE (09:09)
[2023-11-10] MEDS: Ketorolac 60 MG/2 ML SDV IM ONE (09:11)
[2023-11-10 10:36] VITALS: BP 129/73; PULSE 84
== END 2023-11-10 10:26 | disposition home or self-care (01) ==
LOC: JD.ED 07:47
DX: S82.101A Unspecified fracture of upper end of right tibia, initial encounter for closed fracture (principal); F17.210 Nicotine dependence, cigarettes, uncomplicated; E78.00 Pure hypercholesterolemia, unspecified; I10 Essential (primary) hypertension; E66.9 Obesity, unspecified; Z79.82 Long term (current) use of aspirin; Z90.49 Acquired absence of other specified parts of digestive tract; Z68.30 Body mass index [BMI] 30.0-30.9, adult; W19.XXXA Unspecified fall, initial encounter
CPT/HCPCS: 73562-26-RT; 73562-RT; 96372; 99283; J1885; J2930

== ENCOUNTER 2025-05-29 12:31 | Emergency (ER) | payer BC, MEDICAID, OTHER ==
[2025-05-29] MEDS: Sodium Chloride 0.9% 10 ML Syringe FLUSH PRN (13:31)
[2025-05-29] MEDS: Acetaminophen/HYDROcodone 325-5 MG Tab PO ONE (13:42)
[2025-05-29 13:43] LABS: BASOPHILS ABSOLUTE AUTO 0.1 K/mm3 (0.0-0.2); BASOPHILS PERCENT AUTO 0.4 % (0.0-1.0); EOSINOPHILS ABSOLUTE AUTO 0.4 K/mm3 (0.0-0.4); EOSINOPHILS PERCENT AUTO 2.1 % (0.0-6.0); IMMATURE GRAN ABSOLUTE AUTO 0.06 K/mm3 (0.00-0.05); IMMATURE GRAN PERCENT AUTO 0.3 % (0.0-0.4); LYMPHOCYTES ABSOLUTE AUTO 4.5 K/mm3 (1.0-4.8); LYMPHOCYTES PERCENT AUTO 24.2 % (24.0-44.0); MEAN PLATELET VOLUME 9.8 fl (9.4-12.3); MONOCYTES ABSOLUTE AUTO 0.9 K/mm3 (0.0-0.8); MONOCYTES PERCENT AUTO 5.0 % (0.0-8.0); NEUTROPHILS ABSOLUTE AUTO 12.5 K/mm3 (1.8-7.7); NEUTROPHILS PERCENT AUTO 68.0 % (41.0-71.0); NRBC ABSOLUTE 0.00 (0.00-0.02); NRBC PERCENT 0.0 % (0.0-0.2); PLATELET COUNT,PLT 390 K/mm3 (150-400); RED BLOOD CELL COUNT 4.64 M/mm3 (4.10-5.30); WHITE BLOOD CELL COUNT,WBC 18.41 K/mm3 (3.9-11.3)
[2025-05-29] MEDS: Sodium Chloride 0.9% 10 ML Syringe FLUSH ONE (13:58)
[2025-05-29] MEDS: Iopamidol 612 MG/ML 100 ML Bottle IVPUSH ONE (13:58)
[2025-05-29 14:03] LABS: A/G RATIO 1.0 (1-2); ALANINE AMINOTRANSFERASE,ALT 19.0 U/L (14-59); ASPARTATE AMNIOTRANSFERASE,AST 9.0 U/L (15-37); BILIRUBIN TOTAL 0.4 mg/dL (0.2-1.0); BLOOD UREA NITROGEN,BUN 11.0 mg/dL (7-18); CARBON DIOXIDE,CO2 24.0 mEq/L (21-32); CHLORIDE,CL 106.0 mEq/L (98-107); CREATININE 0.7 mg/dL (0.55-1.02); EST CRCL DRUG DOSING (CG) 90.43 mL/min; ESTIMATED GFR 100.0 mL/min (>60); GLUCOSE RANDOM 109.0 mg/dL (70-99); POTASSIUM,K 3.5 mEq/L (3.5-5.1); PROTEIN TOTAL,TP 7.5 g/dl (6.4-8.2); SODIUM,NA 140.0 mEq/L (136-145)
[2025-05-29] MEDS: Amoxicillin/Clavulanate K 875-125 MG Tab PO ONE (14:31)
[2025-05-29 14:58] VITALS: BP 159/78; PULSE 102
== END 2025-05-29 14:55 | disposition home or self-care (01) ==
LOC: JD.ED 12:31
DX: K11.20 Sialoadenitis, unspecified (principal); E78.00 Pure hypercholesterolemia, unspecified; I10 Essential (primary) hypertension; E66.9 Obesity, unspecified; F17.200 Nicotine dependence, unspecified, uncomplicated; Z79.899 Other long term (current) drug therapy; Z79.82 Long term (current) use of aspirin; Z90.49 Acquired absence of other specified parts of digestive tract; Z90.89 Acquired absence of other organs; Z68.30 Body mass index [BMI] 30.0-30.9, adult
CPT/HCPCS: 36415; 70491; 80053; 85025; 86140; 99284; A9270; Q9967